=== PATIENT | female | born 1940 | race Caucasian/White ===

== ENCOUNTER 2017-11-18 14:57 | Inpatient (IN) | payer MEDICARE, MEDICAID ==
--- NOTE | 2017-11-18 15:25 | ER Document Report ---
ED Medical Screen (RME) - General Chief Complaint: Nausea/Vomiting Stated Complaint: NAUSEA,VOMITING Time Seen by Provider: 11/18/17 15:20 Mode of Arrival: Ambulatory Information source: Patient Notes: 77 yo arthritis, CAD, COPD,right heart blockage (dx stress test 2 months ago), andgina, chs, PVD, kidney disease female in by EMS with CC "I thought I had a heart attack", EMT told her that she would probably be admitted until Thursday so she came with suitcase. On Thursday had nausea, burning up, back pain between the shoulder blades and radiated to front of chest, projectile vomiting all medicines. Vomiting started before the chest ache and pressure. [place] restless and hot, not able to ate, looking at food made her nauseous. [place] a little better yesterday but then the shoulder blade ache and chest pain/stomach ache started again. Ate rice krispies today and was able to keep it down. Diarrhea thursday and thursday PM. At this time as ache between shoulder blades "hard to explain" TRAVEL OUTSIDE OF THE [place] IN LAST 30 DAYS: No - Related Data Allergies/Adverse Reactions: codeine [Codeine] Allergy (Verified 11/18/17 15:00) itchy strawberry Allergy (Verified 11/18/17 15:03) varenicline [From Chantix] Allergy (Verified 11/18/17 15:03) Past Medical History - Past Medical History Cardiac Medical History: Reports: Hx Coronary Artery Disease, Hx Heart Attack, Hx Hypertension Denies: Hx Atrial Fibrillation, Hx Congestive Heart Failure, Hx Hypercholesterolemia, Hx Peripheral Vascular Disease, Hx Pulmonary Embolism, Hx Heart Murmur Pulmonary Medical History: Reports: Hx Bronchitis, Hx COPD, Hx Pneumonia, Hx Sleep Apnea Denies: Hx Asthma, Hx Respiratory Failure, Hx Tuberculosis Endocrine Medical History: Reports: Hx Hypothyroidism. Denies: Hx Graves' Disease, Hx Hyperthyroidism Renal/ Medical History: Denies: Hx End Stage Renal Disease, Hx Kidney Stones, Hx Ovarian Cysts, Hx Peritoneal Dialysis, Hx Pelvic Inflammatory Disease Malignancy Medical History: Reports: Hx Breast Cancer - Lumpectomy 1993 R side and removed 9 lymph nodes. Denies: Hx Cervical Cancer, Hx Leukemia, Hx Lung Cancer, Hx Ovarian Cancer GI Medical History: Reports: Hx Gastroesophageal Reflux Disease, Hx Ulcer - Duodenal. Denies: Hx Crohn's Disease, Hx Hiatal Hernia, Hx Irritable Bowel, Hx Liver Failure, Hx Pancreatitis Musculoskeltal Medical History: Reports Hx Arthritis, Denies Hx Fibromyalgia, Denies Hx Muscular Dystrophy Psychiatric Medical History: Reports: Hx Depression Denies: Hx Bipolar Disorder, Hx Post Traumatic Stress Disorder, Hx Schizophrenia Traumatic Medical History: Denies: Hx Fractures Infectious Medical History: Denies: Hx HIV Past Surgical History: Reports: Hx Appendectomy, Hx Breast Surgery - right lumpectomy, Hx Cardiac Catheterization, Hx Cardiac Surgery - bipass, Hx Section - x4, Hx Cholecystectomy, Hx Orthopedic Surgery - left knee, bilat thumb, Hx Tonsillectomy. Denies: Hx Colostomy, Hx Pacemaker - Immunizations Hx Diphtheria, Pertussis, Tetanus Vaccination: Yes Physical Exam - Vital signs Vitals: Temp Pulse Resp BP Pulse Ox 98.3 F 76 18 157/72 H 97 11/18/17 15:02 11/18/17 15:02 11/18/17 15:02 11/18/17 15:02 11/18/17 15:02 Course - Vital Signs Vital signs: Temp Pulse Resp BP Pulse Ox 98.3 F 76 18 157/72 H 97 11/18/17 15:02 11/18/17 15:02 11/18/17 15:02 11/18/17 15:02 11/18/17 15:02 Doctor's Discharge - Discharge Referrals: BAYRON MONROY PA [Primary Care Provider] - Follow up as needed
[2017-11-18] MEDS ORDERED: ASPIRIN 81 MG TABLET, CHEWABLE PO ONE ×2 (15:27→21:00)
[2017-11-18 16:11] LABS: ABSOLUTE BASOPHILS # (AUTO) 0.1 10^3/uL (0.0-0.2); ABSOLUTE EOSINOPHILS # (AUTO) 0.1 10^3/uL (0.0-0.6); ABSOLUTE LYMPHOCYTES (AUTO) 2.8 10^3/uL (0.5-4.7); ABSOLUTE MONOCYTES (AUTO) 0.8 10^3/uL (0.1-1.4); ABSOLUTE NEUT (AUTO) 5.4 10^3/uL (1.7-8.2); BASOPHILS % (AUTO) 0.8 % (0-2); EOSINOPHILS % (AUTO) 1.1 % (0-6); HEMATOCRIT 44.2 % (36.0-47.0); HEMOGLOBIN 15.1 g/dL (12.0-15.5); LYMPHOCYTES % (AUTO) 30.7 % (13-45); MEAN CORPUSCULAR HEMOGLOBIN 28.5 pg (27.0-33.4); MEAN CORPUSCULAR HGB CONC 34.1 g/dL (32.0-36.0); MEAN CORPUSCULAR VOLUME 84 fl (80-97); MONOCYTES % (AUTO) 8.7 % (3-13); PLATELET COUNT 241 10^3/uL (150-450); RED BLOOD COUNT 5.29 10^6/uL (3.72-5.28); RED CELL DISTRIBUTION WIDTH 14.8 % (11.5-14.0); SEGMENTED NEUTROPHILS % (AUTO) 58.7 % (42-78); TOTAL CELLS COUNTED % (AUTO) 100 %; WHITE BLOOD COUNT 9.2 10^3/uL (4.0-10.5)
[2017-11-18 16:26] LABS: ALANINE AMINOTRANSFERASE 25 U/L (9-52); ALBUMIN 3.6 g/dL (3.5-5.0); ALKALINE PHOSPHATASE 130 U/L (38-126); ANION GAP 8 (5-19); ASPARTATE AMINO TRANSFERASE 19 U/L (14-36); BILIRUBIN,DIRECT 0.3 mg/dL (0.0-0.4); BILIRUBIN,TOTAL 0.4 mg/dL (0.2-1.3); BLOOD UREA NITROGEN 14 mg/dL (7-20); CALCIUM 9.3 mg/dL (8.4-10.2); CARBON DIOXIDE 28 mmol/L (22-30); CHLORIDE 107 mmol/L (98-107); CREATINE KINASE 68 U/L (30-135); GLUCOSE 94 mg/dL (75-110); POTASSIUM 4.1 mmol/L (3.6-5.0); SODIUM 142.8 mmol/L (137-145); TOTAL PROTEIN 6.7 g/dL (6.3-8.2)
[2017-11-18 16:40] LABS: CREATINE KINASE MB 1.11 ng/mL (<4.55)
[2017-11-18 16:42] LABS: TROPONIN I 0.096 ng/mL
--- NOTE | 2017-11-18 17:28 | RADIOLOGY REPORT (SQ) ---
EXAM DESCRIPTION: CHEST SINGLE VIEW COMPLETED DATE/TIME: 11/18/2017 4:58 pm REASON FOR STUDY: back and chest pain COMPARISON: March 2012 EXAM PARAMETERS: NUMBER OF VIEWS: One view. TECHNIQUE: Single frontal radiographic view of the chest acquired. RADIATION DOSE: NA LIMITATIONS: None. FINDINGS: LUNGS AND PLEURA: There is some minimal blunting of the costophrenic angles left greater t [place] right which I cannot exclude as small pleural effusions. I cannot exclude some associated atelec tasis or infiltrate in the lung bases. MEDIASTINUM AND HILAR STRUCTURES: No masses. Contour normal. HEART AND VASCULAR STRUCTURES: Cardiac silhouette is enlarged. BONES: No acute findings. HARDWARE: None in the chest. OTHER: No other significant finding. IMPRESSION: Bibasilar densities as noted above TECHNICAL DOCUMENTATION: JOB ID: [id number] [employer]- All Rights Reserved Reading location - IP/workstation name: [email or web address]
--- NOTE | 2017-11-18 18:29 | EKG REPORT ---
SEVERITY:- ABNORMAL ECG - SINUS RHYTHM PROBABLE LEFT VENTRICULAR HYPERTROPHY : Confirmed by: Oliva Mohamud 18-Nov-2017 18:29:01
[2017-11-18] MEDS ORDERED: NORMAL SALINE 1000 ML 1,000 ML IV ONE (18:39)
[2017-11-18] MEDS ORDERED: ONDANSETRON HCL INJ/PF 4 MG/2 ML SDV IV ONE (18:40)
[2017-11-18] MEDS ORDERED: LIDOCAINE 2% VISCOUS SOLN 20 ML UDCUP PO ONE (19:52)
[2017-11-18] MEDS ORDERED: METOCLOPRAMIDE HCL ORAL SOLN 10 MG/10 ML UDCUP PO ONE (19:52)
[2017-11-18] MEDS ORDERED: FAMOTIDINE 20 MG TABLET PO ONE (19:52)
[2017-11-18] MEDS ORDERED: MAG HYDROX/AL HYDROX/SIMETH SUSP 30 ML UDCUP PO ONE (19:52)
--- NOTE | 2017-11-18 19:52 | ER Document Report ---
ED General - General Mode of Arrival: Ambulatory TRAVEL OUTSIDE OF THE [place] IN LAST 30 DAYS: No <JONI RODRIGUEZ - Last Filed: 11/18/17 20:59> <CHELSY MCLAIN - Last Filed: 11/19/17 11:39> - General Chief Complaint: Nausea/Vomiting Stated Complaint: NAUSEA,VOMITING Time Seen by Provider: 11/18/17 15:20 Notes: Patient is a 77-year-old female with a past medical history of coronary artery disease, hypertension, hyperlipidemia, who presents with 4 days of nausea, vomiting, and intermittent chest pain. She describes the pain as being a pressure in her chest radiating into her left jaw and intermittently into her back. States exertion worsens her pain. Nothing improves her pain. She has not seen her doctor regarding today's concerns. She cannot recall the last time she had a cardiac catheterization or stress test. She does currently notes some mild pressure currently but denies any radiation of the pain. She denies any associated shortness of breath. (JONI RODRIGUEZ) - Related Data Allergies/Adverse Reactions: codeine [Codeine] Allergy (Verified 11/18/17 15:00) itchy strawberry Allergy (Verified 11/18/17 15:03) varenicline [From Chantix] Allergy (Verified 11/18/17 15:03) Past Medical History - General Information source: Patient - Social History Smoking Status: Current Every Day Smoker Frequency of alcohol use: None Drug Abuse: None Lives with: Family Family History: Reviewed & Not Pertinent Patient has suicidal ideation: No Patient has homicidal ideation: No - Past Medical History Cardiac Medical History: Reports: Hx Coronary Artery Disease, Hx Heart Attack, Hx Hypertension Denies: Hx Atrial Fibrillation, Hx Congestive Heart Failure, Hx Hypercholesterolemia, Hx Peripheral Vascular Disease, Hx Pulmonary Embolism, Hx Heart Murmur Pulmonary Medical History: Reports: Hx Bronchitis, Hx COPD, Hx Pneumonia, Hx Sleep Apnea Denies: Hx Asthma, Hx Respiratory Failure, Hx Tuberculosis Endocrine Medical History: Reports: Hx Hypothyroidism. Denies: Hx Graves' Disease, Hx Hyperthyroidism Renal/ Medical History: Denies: Hx End Stage Renal Disease, Hx Kidney Stones, Hx Ovarian Cysts, Hx Peritoneal Dialysis, Hx Pelvic Inflammatory Disease Malignancy Medical History: Reports: Hx Breast Cancer - Lumpectomy 1993 R side and removed 9 lymph nodes. Denies: Hx Cervical Cancer, Hx Leukemia, Hx Lung Cancer, Hx Ovarian Cancer GI Medical History: Reports: Hx Gastroesophageal Reflux Disease, Hx Ulcer - Duodenal. Denies: Hx Crohn's Disease, Hx Hiatal Hernia, Hx Irritable Bowel, Hx Liver Failure, Hx Pancreatitis Musculoskeletal Medical History: Reports Hx Arthritis, Denies Hx Fibromyalgia, Denies Hx Muscular Dystrophy Psychiatric Medical History: Reports: Hx Depression Denies: Hx Bipolar Disorder, Hx Post Traumatic Stress Disorder, Hx Schizophrenia Traumatic Medical History: Denies: Hx Fractures Infectious Medical History: Denies: Hx HIV Past Surgical History: Reports: Hx Appendectomy, Hx Breast Surgery - right lumpectomy, Hx Cardiac Catheterization, Hx Cardiac Surgery - bipass, Hx Section - x4, Hx Cholecystectomy, Hx Orthopedic Surgery - left knee, bilat thumb, Hx Tonsillectomy. Denies: Hx Colostomy, Hx Pacemaker - Immunizations Hx Diphtheria, Pertussis, Tetanus Vaccination: Yes Hx Pneumococcal Vaccination: 03/09/10 <JONI RODRIGUEZ - Last Filed: 11/18/17 20:59> Review of Systems <JONI RODRIGUEZ - Last Filed: 11/18/17 20:59> <CHELSY MCLAIN - Last Filed: 11/19/17 11:39> - Review of Systems Notes: Constitutional: Negative for fever. HENT: Negative for sore throat. Eyes: Negative for visual changes. Cardiovascular: Positive for chest pain. Respiratory: Negative for shortness of breath. Gastrointestinal: Negative for abdominal pain, positive vomiting Genitourinary: Negative for dysuria. Musculoskeletal: Negative for back pain. Skin: Negative for rash. Neurological: Negative for headaches, weakness or numbness. 10 point ROS negative except as marked above and in HPI. (JONI RODRIGUEZ) Physical Exam - Vital signs Interpretation: Hypertensive <JONI RDORIGUEZ - Last Filed: 11/18/17 20:59> <CHELSY MCLAIN - Last Filed: 11/19/17 11:39> - Vital signs Vitals: Temp Pulse Resp BP Pulse Ox 98.3 F 76 18 157/72 H 97 11/18/17 15:02 11/18/17 15:02 11/18/17 15:02 11/18/17 15:02 11/18/17 15:02 Notes: PHYSICAL EXAMINATION: GENERAL: Well-appearing, well-nourished and in no acute distress. HEAD: Atraumatic, normocephalic. EYES: Pupils equal round and reactive to light, extraocular movements intact, sclera anicteric, conjunctiva are normal. ENT: nares patent, oropharynx clear without exudates. Moist mucous membranes. NECK: Normal range of motion, supple without lymphadenopathy LUNGS: Breath sounds clear to auscultation bilaterally and equal. No wheezes rales or rhonchi. HEART: Regular rate and rhythm without murmurs ABDOMEN: Soft, nontender, normoactive bowel sounds. No guarding, no rebound. No masses appreciated. EXTREMITIES: Normal range of motion, no pitting or edema. No cyanosis. NEUROLOGICAL: No focal neurological deficits. Moves all extremities spontaneously and on command. PSYCH: Normal mood, normal affect. SKIN: Warm, Dry, normal turgor, no rashes or lesions noted. (JONI RODRIGUEZ) Course - Laboratory Result Diagrams: 11/18/17 16:01 11/18/17 16:01 - Diagnostic Test Radiology reviewed: Image reviewed, Reports reviewed <JONI RODRIGUEZ - Last Filed: 11/18/17 20:59> - Laboratory Result Diagrams: 11/18/17 16:01 11/18/17 16:01 <CHELSY MCLAIN - Last Filed: 11/19/17 11:39> - Re-evaluation Re-evalutation: 11/18/17 19:51 Patient presents with 4 days of intermittent chest pain, nausea, vomiting, upper abdominal pain. She is found to have a moderately elevated troponin 0.093 in the indeterminate range although of note during her previous hospitalization her levels were the same at that time. Her EKG is without ischemic changes. On abdominal exam she has no focal abdominal tenderness, rebound or guarding. Will repeat troponin to determine if this is continuing to elevate. Will also proceed with IV fluids, IV Zofran. The patient is asking for something to eat, certainly reassuring in the setting of having complaint of abdominal pain and vomiting. She does not have a gallbladder. Conical history and exam are not consistent with an acute appendicitis, biliary pathology, bowel obstruction or bowel perforation. 11/18/17 20:59 Patient's troponin has unfortunately continued to elevate. She does also continue to have some chest pain. This is concerning for an NSTEMI. Patient has been given a dose of Lovenox and a nitroglycerin patch has been applied. Unfortunately we are currently in a disastrous scenario all transfers must be coordinated through the [facility]. We have initiated this process for this patient. (JONI RODRIGUEZ) 11/19/17 11:38 Patient was consulted for medicine consult due to the fact that anticipated boarding for prolonged period of time. Medicine is evaluated patient. Deanna Schneider with internal medicine as visit with patient. Patient now states that she refuses to be transferred and does not want a cardiac catheterization even if she needs it. At this time we have made a decision to admit her to the hospitalist service. (CHELSY MCLAIN) - Vital Signs Vital signs: Temp Pulse Resp BP Pulse Ox 98.3 F 76 17 158/64 H 93 11/18/17 15:02 11/18/17 15:02 11/19/17 09:00 11/19/17 07:01 11/19/17 09:00 - Laboratory Laboratory results interpreted by me: 11/18/17 11/18/17 11/18/17 16:01 16:01 20:30 RBC 5.29 H RDW 14.8 H Creatinine 1.31 H Est GFR ( Amer) 48 L Est GFR (Non-Af Amer) 39 L Alkaline Phosphatase 130 H Urine Protein 100 H Urine Urobilinogen 2.0 H - Diagnostic Test Radiology results interpreted by me: 11/18/17 21:01 Chest x-ray: No acute infiltrate or pneumothorax. Bibasilar atelectasis present (JONI RODRIGUEZ) - EKG Interpretation by Me Additional EKG results interpreted by me: 11/18/17 21:05 Normal sinus rhythm. Rate 69. No ST elevations or depressions. QTC is 463. ( JONI RODRIGUEZ) Discharge <JONI RODRIGUEZ - Last Filed: 11/18/17 20:59> - Discharge Admitting Provider: Hospitalist - [facility] Admitted: Telemetry <CHELSY MCLAIN - Last Filed: 11/19/17 11:39> - Discharge Clinical Impression: NSTEMI (non-ST elevated myocardial infarction) Condition: Good Disposition: ADMITTED INPATIENT Referrals: BAYRON MONROY PA [Primary Care Provider] - Follow up as needed
[2017-11-18 20:18] LABS: LIPASE 63.9 U/L (23-300)
[2017-11-18 20:54] LABS: APPEARANCE,URINE SLIGHTLY-CLOUDY; BILIRUBIN,URINE NEGATIVE (NEGATIVE); COLOR,URINE YELLOW; GLUCOSE, URINE NEGATIVE (NEGATIVE); KETONES,URINE NEGATIVE (NEGATIVE); LEUKOCYTE ESTERASE,URINE NEGATIVE (NEGATIVE); NITRITE,URINE NEGATIVE (NEGATIVE); PROTEIN,URINE 100 mg/dL (NEGATIVE); URINE SPECIFIC GRAVITY 1.023
[2017-11-18] MEDS ORDERED: METOPROLOL TARTRATE 25 MG TABLET PO ONE (20:55)
[2017-11-18] MEDS ORDERED: AMLODIPINE BESYLATE 10 MG TABLET PO ONE (20:55)
[2017-11-18] MEDS ORDERED: ISOSORBIDE MONONITRATE 60 MG TAB.ER.24H PO ONE (20:55)
[2017-11-18] MEDS ORDERED: NITROGLYCERIN 2% OINTMENT 1 GM PACKET TP ONE (20:57)
[2017-11-18] MEDS: ENOXAPARIN SODIUM INJ 100 MG/1 ML DISP.SYRIN SUBCUT SCH (21:20)
[2017-11-18] MEDS ORDERED: ALPRAZOLAM 0.5 MG TABLET PO ONE (23:11)
[2017-11-19] MEDS ORDERED: ATORVASTATIN CALCIUM 80 MG TABLET PO ONE (00:38)
[2017-11-19] MEDS: ENOXAPARIN SODIUM INJ 100 MG/1 ML DISP.SYRIN SUBCUT SCH ×2 (09:52→22:02)
[2017-11-19] MEDS ORDERED: ALPRAZOLAM 0.5 MG TABLET PO PRN (10:45)
[2017-11-19] MEDS ORDERED: CLOPIDOGREL BISULFATE 75 MG TABLET PO ONE (11:00)
[2017-11-19] MEDS ORDERED: LEVOTHYROXINE SODIUM 0.1 MG TABLET PO ONE (11:00)
[2017-11-19] MEDS ORDERED: LIDOCAINE 5% (700 MG) TRANSDERMAL ADH..PATCH TP ONE (11:00)
[2017-11-19] MEDS: LIDOCAINE 5% (700 MG) TRANSDERMAL ADH..PATCH TP SCH (11:28)
[2017-11-19] MEDS ORDERED: NORMAL SALINE 1000 ML 1,000 ML IV PRN (11:44)
[2017-11-19] MEDS ORDERED: MAG HYDROX/AL HYDROX/SIMETH SUSP 30 ML UDCUP PO PRN (11:55)
[2017-11-19] MEDS ORDERED: IPRATROPIUM/ALBUTEROL 0.5-2.5 MG/3 ML AMPUL NEB PRN (11:57)
[2017-11-19 12:16] LABS: ANION GAP 9 (5-19); BLOOD UREA NITROGEN 11 mg/dL (7-20); CALCIUM 9.1 mg/dL (8.4-10.2); CARBON DIOXIDE 26 mmol/L (22-30); CHLORIDE 107 mmol/L (98-107); GLUCOSE 108 mg/dL (75-110); POTASSIUM 4.5 mmol/L (3.6-5.0); SODIUM 142.1 mmol/L (137-145)
--- NOTE | 2017-11-19 12:34 | RADIOLOGY REPORT (SQ) ---
EXAM DESCRIPTION: CT ABD/PELVIS WITH IV ONLY COMPLETED DATE/TIME: 11/19/2017 12:13 pm REASON FOR STUDY: abdominal pain, wt loss, remote Hx CA COMPARISON: Chest film 11/18/2017 Abdominal films 06/08/2012 TECHNIQUE: CT scan of the abdomen and pelvis performed using helical scanning technique with dynamic intravenous contrast injection. No oral contrast. Images reviewed with lung, soft tissue, and bone windows. Reconstructed coronal and sagittal MPR images reviewed. Delayed images for evaluation of the urinary system also acquired. All images stored on PACS. All CT scanners at this facility use dose modulation, iterative reconstruction, and/or weight based d osing when appropriate to reduce radiation dose to as low as reasonably achievable (ALARA). [facility]: Dose Right [facility]: CareDose [facility]: Dose Right [facility]: Teradose 4D [facility]: ViaWest CONTRAST TYPE AND DOSE: contrast/concentration: Isovue 350.00 mg/ml; Total Contrast Delivered: 99.0 ml; Total Saline Delivered: 72.0 ml RENAL FUNCTION: Creatinine 1.3 RADIATION DOSE: CT Rad equipment meets quality standard of care and radiation dose reduction techniq ues were employed. CTDIvol: 20.7 - 21.0 mGy. DLP: 2018 mGy-cm.. LIMITATIONS: None. FINDINGS: LOWER CHEST: No significant findings. No nodules or infiltrates. LIVER: Normal size. No masses. No dilated ducts. SPLEEN: Normal size. No focal lesions. PANCREAS: No masses. No significant calcifications. No adjacent inflammation or peripancreatic fluid collections. Pancreatic duct not dilated. GALLBLADDER: Surgically absent ADRENAL GLANDS: No significant masses or asymmetry. RIGHT KIDNEY AND URETER: Normal size right kidney. No solid masses. No significant calcifications. No hydronephrosis or hydroureter. LEFT KIDNEY AND URETER: Diffuse left renal cortical atrophy with 1 cm midpole and lower pole cysts. No solid masses. No significant calcifications. No hydronephrosis or hydroureter. AORTA AND VESSELS: No aneurysm. No dissection. Renal arteries, SMA, celiac without stenosis. RETROPERITONEUM: No retroperitoneal adenopathy, hemorrhage or masses. BOWEL AND PERITONEAL CAVITY: No CT evidence of bowel obstruction or free intraperitoneal air or fluid . Large amount of stool throughout the colon. Sigmoid colon diverticuli are present. No masses or inflammatory changes. No free fluid or peritoneal masses. APPENDIX: Normal. PELVIS: No mass. No free fluid. Normal bladder. Normal size female pelvic organs ABDOMINAL WALL: No masses. No hernias. BONES: Degenerative changes lower lumbar spine OTHER: No other significant finding. IMPRESSION: NO SIGNIFICANT OR ACUTE FINDING IN THE ABDOMEN OR PELVIS ON CT SCAN WITH IV CONTRAST. TECHNICAL DOCUMENTATION: JOB ID: [id number] Quality ID # [id number]: Final reports with documentation of one or more dose reduction techniques (e.g., Au tomated exposure control, adjustment of the mA and/or kV according to patient size, use of iterative reconstruction technique) 2010 [employer]- All Rights Reserved Reading location - IP/workstation name: [email or web address]
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
[2017-11-19] MEDS ORDERED: NA PHOS,M-B/NA PHOS,DI-BA (ADULT) 133 ML ENEMA PR ONE (14:30)
[2017-11-19] MEDS ORDERED: FUROSEMIDE 20 MG TABLET PO ONE (15:00)
[2017-11-19] MEDS ORDERED: ISOSORBIDE MONONITRATE 60 MG TAB.ER.24H PO ONE (15:00)
[2017-11-19] MEDS ORDERED: METOPROLOL TARTRATE 25 MG TABLET PO ONE (15:00)
[2017-11-19] MEDS: HYDRALAZINE HCL 50 MG TABLET PO SCH ×2 (15:00→21:58)
[2017-11-19] MEDS: GABAPENTIN 300 MG CAPSULE PO SCH ×2 (15:00→22:01)
[2017-11-19] MEDS ORDERED: AMLODIPINE BESYLATE 10 MG TABLET PO ONE (15:00)
[2017-11-19] MEDS: PENTOXIFYLLINE 400 MG TABLET.SA PO SCH ×2 (15:05→22:10)
--- NOTE | 2017-11-19 16:59 | EKG REPORT ---
SEVERITY:- ABNORMAL ECG - SINUS RHYTHM PROBABLE LEFT VENTRICULAR HYPERTROPHY : Confirmed by: Oliva Mohamud 19-Nov-2017 16:58:00
[2017-11-19] MEDS ORDERED: HYDRALAZINE HCL INJ/PF 20 MG/1 ML SDV IV PRN (17:00)
[2017-11-19] MEDS: DOCUSATE SODIUM 100 MG CAPSULE PO SCH (17:21)
[2017-11-19] MEDS: MORPHINE SULFATE 10 MG/ML INJ IV PRN ×2 (17:21→23:46)
[2017-11-19] MEDS: TICAGRELOR 90 MG TABLET PO SCH (17:21)
[2017-11-19] MEDS: ATORVASTATIN CALCIUM 40 MG TABLET PO SCH (21:57)
[2017-11-19] MEDS: OXYCODONE HCL IR 5 MG TABLET PO PRN (21:58)
[2017-11-19] MEDS ORDERED: ISOSORBIDE MONONITRATE 60 MG TAB.ER.24H PO SCH (22:00)
[2017-11-19] MEDS ORDERED: POLYETHYLENE GLYCOL 3350 POWDER 17 GM/1 PACKET PO SCH (22:00)
[2017-11-19] MEDS: METOPROLOL TARTRATE 25 MG TABLET PO SCH (22:02)
[2017-11-20 05:16] LABS: HEMATOCRIT 40.6 % (36.0-47.0); HEMOGLOBIN 13.6 g/dL (12.0-15.5); MEAN CORPUSCULAR HGB CONC 33.5 g/dL (32.0-36.0); MEAN CORPUSCULAR VOLUME 84 fl (80-97); PLATELET COUNT 207 10^3/uL (150-450); RED BLOOD COUNT 4.86 10^6/uL (3.72-5.28); WHITE BLOOD COUNT 7.8 10^3/uL (4.0-10.5)
[2017-11-20] MEDS: GABAPENTIN 300 MG CAPSULE PO SCH ×3 (05:33→22:09)
[2017-11-20] MEDS: LANSOPRAZOLE 30 MG TAB.RAP.DR PO SCH (05:33)
[2017-11-20] MEDS: PENTOXIFYLLINE 400 MG TABLET.SA PO SCH ×3 (05:33→22:08)
[2017-11-20] MEDS: MORPHINE SULFATE 10 MG/ML INJ IV PRN ×2 (05:34→11:38)
[2017-11-20] MEDS: HYDRALAZINE HCL 50 MG TABLET PO SCH ×3 (05:34→22:09)
[2017-11-20 05:35] LABS: ANION GAP 7 (5-19); BLOOD UREA NITROGEN 15 mg/dL (7-20); CALCIUM 8.7 mg/dL (8.4-10.2); CARBON DIOXIDE 29 mmol/L (22-30); CHLORIDE 104 mmol/L (98-107); CHOLESTEROL 127.51 mg/dL (0-200); GLUCOSE 103 mg/dL (75-110); POTASSIUM 3.6 mmol/L (3.6-5.0); SODIUM 139.6 mmol/L (137-145); TRIGLYCERIDES 193 mg/dL (<150)
[2017-11-20 05:46] LABS: DIRECT LDL 60 mg/dL (<100)
[2017-11-20 05:51] LABS: VLDL CHOLESTEROL 38.6 mg/dL (10-31)
[2017-11-20] MEDS: LEVOTHYROXINE SODIUM 0.1 MG TABLET PO SCH (06:48)
[2017-11-20] MEDS ORDERED: NORMAL SALINE 1000 ML 1,000 ML IV PRN (07:43)
[2017-11-20] MEDS ORDERED: FUROSEMIDE 20 MG TABLET PO SCH (08:00)
[2017-11-20] MEDS ORDERED: (PENDING PHARMACY ID) (Liothyronine Sodium [Cytomel] 5 MCG) PO SCH (10:00)
[2017-11-20] MEDS ORDERED: (PENDING PHARMACY ID) (Naloxegol Oxalate 25 MG) PO SCH (10:00)
[2017-11-20] MEDS ORDERED: (PENDING PHARMACY ID) (Vortioxetine Hydrobromide [Trintellix] 5 MG) PO SCH (10:00)
[2017-11-20] MEDS ORDERED: CLOPIDOGREL BISULFATE 75 MG TABLET PO SCH (10:00)
[2017-11-20] MEDS ORDERED: ISOSORBIDE MONONITRATE 60 MG TAB.ER.24H PO SCH (10:00)
[2017-11-20] MEDS ORDERED: LIDOCAINE 5% (700 MG) TRANSDERMAL ADH..PATCH TP SCH (10:00)
[2017-11-20] MEDS ORDERED: POLYETHYLENE GLYCOL 3350 POWDER 17 GM/1 PACKET PO SCH (10:00)
[2017-11-20] MEDS ORDERED: ISOSORBIDE MONONITRATE 30 MG TAB.ER.24H PO ONE ×2 (10:17→10:30)
[2017-11-20] MEDS ORDERED: ISOSORBIDE MONONITRATE 60 MG TAB.ER.24H PO ONE ×2 (10:17→10:19)
[2017-11-20] MEDS: ISOSORBIDE MONONITRATE 60 MG TAB.ER.24H PO SCH (10:33)
[2017-11-20] MEDS: ENOXAPARIN SODIUM INJ 100 MG/1 ML DISP.SYRIN SUBCUT SCH ×2 (10:33→22:10)
[2017-11-20] MEDS: DOCUSATE SODIUM 100 MG CAPSULE PO SCH ×2 (10:34→17:18)
[2017-11-20] MEDS: TICAGRELOR 90 MG TABLET PO SCH ×2 (10:34→17:18)
[2017-11-20] MEDS: ASPIRIN 81 MG TABLET, CHEWABLE PO SCH (10:34)
[2017-11-20] MEDS: LIDOCAINE 5% (700 MG) TRANSDERMAL ADH..PATCH TP SCH (10:34)
[2017-11-20] MEDS: AMLODIPINE BESYLATE 10 MG TABLET PO SCH (10:34)
[2017-11-20] MEDS: POTASSIUM CHLORIDE 10 MEQ CAPSULE.ER PO SCH (10:34)
[2017-11-20] MEDS: LIOTHYRONINE SODIUM 5 MCG TABLET PO SCH (10:34)
[2017-11-20] MEDS: METOPROLOL TARTRATE 25 MG TABLET PO SCH ×2 (10:37→22:09)
[2017-11-20] MEDS ORDERED: ISOSORBIDE MONONITRATE 30 MG TAB.ER.24H PO SCH (11:00)
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
--- NOTE | 2017-11-20 11:48 | RADIOLOGY REPORT (SQ) ---
EXAM DESCRIPTION: HIP LEFT AP/LATERAL COMPLETED DATE/TIME: 11/20/2017 11:36 am REASON FOR STUDY: pain hurts all over. COMPARISON: None. NUMBER OF VIEWS: Two views. TECHNIQUE: AP pelvis and additional frog-leg view of the left hip. LIMITATIONS: None. FINDINGS: MINERALIZATION: Osteopenia. LEFT HIP: No fracture or dislocation. No worrisome bone lesions. RIGHT HIP: No fracture or dislocation. No worrisome bone lesions. PUBIS AND ISCHIUM: No fracture. PELVIS: No fracture. SACRUM: No fracture or dislocation. No worrisome bone lesions. LOWER LUMBAR SPINE: No fracture or dislocation. No worrisome bone lesions. No significant disc disea se. SOFT TISSUES: No findings. OTHER: Vascular graft. IMPRESSION: NEGATIVE STUDY OF THE LEFT HIP AND PELVIS. NO RADIOGRAPHIC EVIDENCE OF ACUTE INJURY. TECHNICAL DOCUMENTATION: JOB ID: [id number] [employer]- All Rights Reserved Reading location - IP/workstation name: [email or web address]
--- NOTE | 2017-11-20 12:23 | PDOC PROGRESS REPORT ---
Subjective Progress Note for:: 11/20/17 Subjective:: PEBBLES ENAMORADO is a 77 year old female with a past medical history of HI 2 (s/ p angioplasty), CAD, PVD, CHF, hypertension, hyperlipidemia, COPD, CKD 2, remote breast cancer, obesity, chronic pain, opiate dependent who was admitted for non-STEMI. The patient is seen on morning rounds. She is found resting in bed comfortably on room air. Initially she is sleeping lying left lateral position; breathing is noted to be even and unlabored. Patient woke easily when I set her name. She tells me that she has not had any further episodes of chest, back, or left shoulder pain. She does endorse left knee pain; reports that during a transfer from stretcher to bed last night she felt a pop and that her knee has been aching since. She is noted to have left lower extremity edema of the calf which the patient reports is chronic for her following orthopedic surgery. She also complains of constipation, but did have a hard stool palpable movement last night. Otherwise, she states that she is feeling well and appreciates the care she is received in the hospital thus far. She has no other questions or concerns at this time. No concerns per nursing. Reason For Visit: NON-ST ELEVATION (NSTEMI) MYOCARDIAL INFARCTION Physical Exam Vital Signs: Temp Pulse Resp BP Pulse Ox 98.5 F 57 L 16 146/62 H 100 11/20/17 08:08 11/20/17 09:17 11/20/17 09:17 11/20/17 08:08 11/20/17 09:17 Intake & Output 11/19/17 11/20/17 11/21/17 06:59 06:59 06:59 Intake Total 0 Balance 0 Weight 98.4 kg General appearance: PRESENT: no acute distress, well-developed, well-nourished Head exam: PRESENT: atraumatic, normocephalic Eye exam: PRESENT: conjunctiva pink, EOMI, PERRLA. ABSENT: scleral icterus Ear exam: PRESENT: normal external ear exam Mouth exam: PRESENT: moist, tongue midline Neck exam: ABSENT: carotid bruit, JVD, lymphadenopathy, thyromegaly Respiratory exam: PRESENT: clear to auscultation evita, symmetrical, unlabored. ABSENT: rales, rhonchi, wheezes Cardiovascular exam: PRESENT: bradycardia - 50s-60s, RRR, +S1, +S2, systolic murmur. ABSENT: diastolic murmur, rubs Pulses: PRESENT: normal dorsalis pedis pul Vascular exam: PRESENT: normal capillary refill GI/Abdominal exam: PRESENT: distended, normal bowel sounds, soft, tenderness - Generalized. ABSENT: guarding, mass, organolmegaly, rebound Rectal exam: PRESENT: deferred Extremities exam: PRESENT: full ROM. ABSENT: calf tenderness, clubbing, pedal edema Neurological exam: PRESENT: alert, awake, oriented to person, oriented to place , oriented to time, oriented to situation, CN II-XII grossly intact. ABSENT: motor sensory deficit Psychiatric exam: PRESENT: appropriate affect, normal mood. ABSENT: homicidal ideation, suicidal ideation Skin exam: PRESENT: dry, intact, warm. ABSENT: cyanosis, rash Results Laboratory Results: 11/20/17 04:22 11/20/17 04:22 11/20/17 11/20/17 04:22 04:22 WBC 7.8 RBC 4.86 Hgb 13.6 Hct 40.6 MCV 84 MCH 28.0 MCHC 33.5 RDW 15.0 H Plt Count 207 Sodium 139.6 Potassium 3.6 Chloride 104 Carbon Dioxide 29 Anion Gap 7 BUN 15 Creatinine 1.40 H Est GFR ( Amer) 44 L Est GFR (Non-Af Amer) 37 L Glucose 103 Calcium 8.7 Triglycerides 193 H Cholesterol 127.51 LDL Cholesterol Direct 60 VLDL Cholesterol 38.6 H HDL Cholesterol 34 L Impressions: Chest X-Ray 11/18/17 15:27 IMPRESSION: Bibasilar densities as noted above Abdomen/Pelvis CT 11/19/17 00:00 IMPRESSION: NO SIGNIFICANT OR ACUTE FINDING IN THE ABDOMEN OR PELVIS ON CT SCAN WITH IV CONTRAST. Hip X-Ray 11/20/17 00:00 IMPRESSION: NEGATIVE STUDY OF THE LEFT HIP AND PELVIS. NO RADIOGRAPHIC EVIDENCE OF ACUTE INJURY. Knee X-Ray 11/20/17 00:00 IMPRESSION: No acute fracture. Osteoarthritis. Assessment & Plan - Diagnosis (1) NSTEMI (non-ST elevated myocardial infarction) Is this a current diagnosis for this admission?: Yes Plan: The patient presented with atypical chest pain that has gradually worsened over the last 3 days with multiple risk factors including obesity, hypertension, hyperlipidemia, CAD, CHF, and previous HI 2. EKG demonstrated sinus rhythm with probable LVH; ST segment is without elevation or depression, no acute findings. Chest x-ray is benign; there is bibasilar density, radiologist unable to comment on atelectasis versus pneumonia. The patient is afebrile with a normal white count and no symptoms suggestive of pneumonia at this time. Initial troponin was elevated at 0.096 and trended upward to a peak of 0.156, trended down to 0.104 and no longer following. Echocardiogram has been obtained; final read is pending. Initial report by [facility] suggest her LVEF is normal. The patient is admitted to the medical floor on continuous cardiac telemetry. She is placed on full dose Lovenox therapy. We will continue daily aspirin therapy. Continue her home dose atorvastatin. Her Plavix was discontinued. Have started Brilinta 90 mg twice daily as recommended by Dr. West. We will continue PPI for prophylaxis. Imdur dose has been adjusted to extended release 150 mg daily. Norvasc and metoprolol are continued. IV morphine as needed for breakthrough pain. Cardiology has been consulted; appreciate Dr. West's assistance. (2) HTN (hypertension) Qualifiers: Hypertension type: unspecified Qualified Code(s): I10 - Essential (primary ) hypertension Is this a current diagnosis for this admission?: Yes Plan: The patient's home medications of isosorbide, metoprolol, amlodipine, hydralazine, and furosemide are continued. (3) HLD (hyperlipidemia) Is this a current diagnosis for this admission?: Yes Plan: We will continue the patient's home dose atorvastatin. (4) CAD (coronary artery disease) Qualifiers: Coronary Disease-Associated Artery/Lesion type: unspecified vessel or lesion type Is this a current diagnosis for this admission?: Yes Plan: Plan as above. (5) CHF (congestive heart failure) Qualifiers: Heart failure type: unspecified Heart failure chronicity: chronic Qualified Code(s): I50.9 - Heart failure, unspecified Is this a current diagnosis for this admission?: Yes Plan: The patient reports a history of CHF; no evidence of acute exacerbation. She does not recall when her last echocardiogram was or what the findings were. We will continue her home dose medications as above. We will update echocardiogram; report is pending. Daily weights. Cardiac diet. (6) COPD (chronic obstructive pulmonary disease) Qualifiers: COPD type: unspecified COPD Qualified Code(s): J44.9 - Chronic obstructive pulmonary disease, unspecified Is this a current diagnosis for this admission?: Yes Plan: Patient endorses a history of COPD; without exacerbation at this time. Will provide supplemental oxygen and nebulizer treatments as needed. (7) GERD (gastroesophageal reflux disease) Is this a current diagnosis for this admission?: Yes Plan: Continue PPI. (8) Anxiety Is this a current diagnosis for this admission?: Yes Plan: Continue home medications; trintellix and xanax. (9) Opiate dependence, continuous Is this a current diagnosis for this admission?: Yes Plan: Will continue her home dose oxycodone for chronic pain. (10) Knee pain, left Qualifiers: Chronicity: acute Qualified Code(s): M25.562 - Pain in left knee Is this a current diagnosis for this admission?: Yes Plan: Patient reports left knee pain; reports that she felt a pop yesterday when transferring from stretcher to bed. She is noted to have slight edema to her left calf which patient reports is chronic following previous orthopedic procedure. She does have full range of motion. Left hip and knee imaging are benign; chronic degenerative changes noted to the knee. Encourage use of Tylenol, ice, position changes. Continue the patient's home chronic pain medication regiment. - Time Time Spent with patient: 15-24 minutes Medications reviewed and adjusted accordingly: Yes Anticipated discharge: Home Within: within 72 hours - Inpatient Certification Based on my medical assessment, after consideration of the patient's comorbidities, presenting symptoms, or acuity I expect that the services needed warrant INPATIENT care.: Yes I certify that my determination is in accordance with my understanding of Medicare's requirements for reasonable and necessary INPATIENT services [42 CFR 412.3e].: Yes Medical Necessity: Need For Continuous Telemetry Monitoring
--- NOTE | 2017-11-20 14:23 | EKG REPORT ---
SEVERITY:- ABNORMAL ECG - SINUS RHYTHM PROBABLE LEFT VENTRICULAR HYPERTROPHY : Confirmed by: Oliva Mohamud 20-Nov-2017 14:22:30
[2017-11-20] MEDS: OXYCODONE HCL IR 5 MG TABLET PO PRN (15:57)
[2017-11-20 19:58] LABS: APPEARANCE,URINE CLEAR; BILIRUBIN,URINE NEGATIVE (NEGATIVE); COLOR,URINE YELLOW; GLUCOSE, URINE NEGATIVE (NEGATIVE); KETONES,URINE NEGATIVE (NEGATIVE); LEUKOCYTE ESTERASE,URINE NEGATIVE (NEGATIVE); NITRITE,URINE NEGATIVE (NEGATIVE); PROTEIN,URINE NEGATIVE (NEGATIVE); URINE SPECIFIC GRAVITY 1.019; UROBILINOGEN,URINE NEGATIVE mg/dL (<2.0)
[2017-11-20] MEDS: ALPRAZOLAM 0.5 MG TABLET PO PRN (22:08)
[2017-11-20] MEDS: ATORVASTATIN CALCIUM 40 MG TABLET PO SCH (22:08)
[2017-11-20] MEDS: POLYETHYLENE GLYCOL 3350 POWDER 17 GM/1 PACKET PO SCH (22:10)
[2017-11-21] MEDS: OXYCODONE HCL IR 5 MG TABLET PO PRN ×2 (01:12→21:46)
[2017-11-21 05:12] LABS: ANION GAP 5 (5-19); BLOOD UREA NITROGEN 13 mg/dL (7-20); CALCIUM 8.9 mg/dL (8.4-10.2); CARBON DIOXIDE 28 mmol/L (22-30); CHLORIDE 106 mmol/L (98-107); GLUCOSE 105 mg/dL (75-110); POTASSIUM 3.9 mmol/L (3.6-5.0); SODIUM 139.4 mmol/L (137-145)
[2017-11-21] MEDS: MORPHINE SULFATE 10 MG/ML INJ IV PRN (05:38)
[2017-11-21] MEDS: LEVOTHYROXINE SODIUM 0.1 MG TABLET PO SCH (05:41)
[2017-11-21] MEDS: LANSOPRAZOLE 30 MG TAB.RAP.DR PO SCH (05:41)
[2017-11-21] MEDS: HYDRALAZINE HCL 50 MG TABLET PO SCH ×3 (05:42→21:26)
[2017-11-21] MEDS: GABAPENTIN 300 MG CAPSULE PO SCH ×3 (05:43→21:22)
[2017-11-21] MEDS: PENTOXIFYLLINE 400 MG TABLET.SA PO SCH ×3 (05:45→21:22)
[2017-11-21] MEDS: DOCUSATE SODIUM 100 MG CAPSULE PO SCH ×2 (10:15→17:24)
[2017-11-21] MEDS: FUROSEMIDE 20 MG TABLET PO SCH ×2 (10:16→12:07)
[2017-11-21] MEDS: AMLODIPINE BESYLATE 10 MG TABLET PO SCH (10:16)
[2017-11-21] MEDS: ISOSORBIDE MONONITRATE 60 MG TAB.ER.24H PO SCH (10:16)
[2017-11-21] MEDS: TICAGRELOR 90 MG TABLET PO SCH ×2 (10:17→17:24)
[2017-11-21] MEDS: POTASSIUM CHLORIDE 10 MEQ CAPSULE.ER PO SCH (10:17)
[2017-11-21] MEDS: METOPROLOL TARTRATE 25 MG TABLET PO SCH ×2 (10:17→21:26)
[2017-11-21] MEDS: LIOTHYRONINE SODIUM 5 MCG TABLET PO SCH (10:17)
[2017-11-21] MEDS: ASPIRIN 81 MG TABLET, CHEWABLE PO SCH (10:17)
[2017-11-21] MEDS: ENOXAPARIN SODIUM INJ 100 MG/1 ML DISP.SYRIN SUBCUT SCH (10:17)
[2017-11-21] MEDS: LIDOCAINE 5% (700 MG) TRANSDERMAL ADH..PATCH TP SCH (10:18)
[2017-11-21 13:25] LABS: APPEARANCE,URINE CLOUDY; BILIRUBIN,URINE NEGATIVE (NEGATIVE); COLOR,URINE STRAW; GLUCOSE, URINE NEGATIVE (NEGATIVE); KETONES,URINE NEGATIVE (NEGATIVE)
[2017-11-21 13:26] LABS: LEUKOCYTE ESTERASE,URINE NEGATIVE (NEGATIVE); NITRITE,URINE NEGATIVE (NEGATIVE); PROTEIN,URINE 30 mg/dL (NEGATIVE); URINE SPECIFIC GRAVITY 1.015; UROBILINOGEN,URINE NEGATIVE mg/dL (<2.0)
[2017-11-21 15:39] LABS: ANION GAP 5 (5-19); BLOOD UREA NITROGEN 15 mg/dL (7-20); CALCIUM 8.5 mg/dL (8.4-10.2); CARBON DIOXIDE 30 mmol/L (22-30); CHLORIDE 104 mmol/L (98-107); CREATINE KINASE 83 U/L (30-135); GLUCOSE 111 mg/dL (75-110); POTASSIUM 4.2 mmol/L (3.6-5.0); SODIUM 138.5 mmol/L (137-145)
--- NOTE | 2017-11-21 15:48 | Progress Note ---
Provider Note Provider Note: PROGRESS NOTE by Dr. Micaela Garcia for 11/21/2017. OBJECTIVE. The patient since yesterday did not have any chest pain or discomfort. She is per the nurses started having some chest pain relieved with nitroglycerin. EKG obtained shows deeper T-wave inversion in the lateral leads. At present the patient is pain-free. She denies any shortness of breath palpitation PND orthopnea or leg edema. There is no wheezing or cough there is no symptoms of acute exacerbation of COPD. There is no pedal edema. There is no arrhythmias seen on the monitor. There is no TIA or CVA symptoms.. PHYSICAL EXAMINATION: The patient is moderately obese, but well-groomed at present no acute distress. She has no further chest pain. She is well-groomed. Selected Entries 11/21/17 15:11 Temperature 97.8 F Pulse Rate 55 L Respiratory 18 Rate Blood Pressure 150/49 H Blood Pressure 82 Mean O2 Sat by Pulse 99 Oximetry Oxygen Delivery Room Air Method HEAD: Head is atraumatic normocephalic. EYES: Pupils are equal round regular reactive to light accommodation. Extraocular movements are normal there is no conjunctival pallor there is no scleral icterus. ENT: Negative. NECK: Neck is supple there is no JVD carotids equal there is no bruit there is no lymphadenopathy. There is no goiter. Trachea central. There is no accessory muscles of respiration use. LUNGS: There is diminished air entry and prolonged expiration throughout the lungs without any rhonchi rales or wheezing. On percussion there is hyperresonance throughout. There is no chest wall tenderness. HEART: S1-S2 is heard S1 is of normal intensity there is no S3 gallop there is no S4 gallop the systolic murmur left sternal border and apex there is no rub. ABDOMEN: Soft obese nontender there is no hepatosplenomegaly bowel sounds well heard there is no rebound guarding or rigidity. EXTREMITIES: Femorals are diminished there is no femoral bruits neck pulses are diminished. There is no pedal edema there is no DVT or cellulitis there is no calf tenderness present. There is no sinus or clubbing. Capillary refill is normal. PROJECT BUILDER: The patient is conscious awake alert oriented 3 with no focal deficits. PSYCHIATRIC: The patient judgment and insight are intact his affect her affect is normal. 11/19/17 11/20/1711/21/18 11:35 04:22 04:25 Sodium 139.4 Potassium 3.9 Chloride 106 Carbon Dioxide 28 BUN 13 Creatinine 1.49 H Est GFR (Non-Af Amer) 34 L Glucose 105 Calcium 8.9 Troponin I 0.104 Triglycerides 193 H Cholesterol 127.51 LDL Cholesterol Direct 60 VLDL Cholesterol 38.6 H HDL Cholesterol 34 L 11/21/17 04:25 Sodium Potassium Chloride Carbon Dioxide BUN Creatinine Est GFR (Non-Af Amer) Glucose Calcium Troponin I 0.063 Triglycerides Cholesterol LDL Cholesterol Direct VLDL Cholesterol HDL Cholesterol IMPRESSION/RECOMMENDATION: 1. NON-ST elevation TN: The patient has post infarct angina. The patient is very vehement about getting cardiac catheterization. She wants to be treated medically. She is aware of the risks of this. Which include TN CHF and cardiac arrest, ventricular arrhythmias. Note that the patient's anticoagulation has been stopped. Since this is short lived anginal episode would not restart the patient's anticoagulation at present. Continue the patient on aspirin ,continue the patient on Brilinta, continue beta-blockers and nitrates. Will add Ranexa to the patient's regimen. Unable to assess wall motion normality of the echo due to poor imaging. 2. Coronary artery disease. History of coronary bypass graft surgery, and history of prior MIs 2 in the past. 3. History of congestive heart failure in the past. At present the patient's LV ejection fraction is normal in spite of her suboptimal echo. 4. Peripheral vascular disease: Patient is no calf or buttock claudication. 5. COPD: At present stable at baseline, without symptoms or signs of acute exacerbation. 6. History of tobacco abuse. Tobacco cessation counseling is been given to the patient. 3 minutes spent on this. 7. Hypo-thyroidism: Continue replacement. #8 dyslipidemia: Note that the patient's HDL levels are low at 34. The patient is also already on statin continue the same. Will closely observe the patient in view of the EKG changes. If the patient should have recurrent chest pain with neck restart the patient's full dose anticoagulation.
[2017-11-21 15:50] LABS: CREATINE KINASE MB 1.33 ng/mL (<4.55); TROPONIN I 0.037 ng/mL
--- NOTE | 2017-11-21 16:10 | RADIOLOGY REPORT (SQ) ---
EXAM DESCRIPTION: CHEST SINGLE VIEW COMPLETED DATE/TIME: 11/21/2017 4:03 pm REASON FOR STUDY: rhythm change COMPARISON: 11/18/2017 NUMBER OF VIEWS: One view. TECHNIQUE: Single frontal radiographic view of the chest acquired. LIMITATIONS: None. FINDINGS: LUNGS AND PLEURA: No opacities, masses or pneumothorax. No pleural effusion. MEDIASTINUM AND HILAR STRUCTURES: No masses or contour abnormality. HEART AND VASCULATURE: Cardiac enlargement. Vascular congestion. BONES: No acute findings. HARDWARE: None in the chest. OTHER: No other significant finding. IMPRESSION: CARDIAC ENLARGEMENT. VASCULAR CONGESTION. TECHNICAL DOCUMENTATION: JOB ID: [id number] [employer]- All Rights Reserved Reading location - IP/workstation name: [email or web address]
--- NOTE | 2017-11-21 17:10 | PDOC PROGRESS REPORT ---
Subjective Progress Note for:: 11/21/17 Subjective:: PEBBLES ENAMORADO is a 77 year old female with a past medical history of CT 2 (s/ p angioplasty), CAD, PVD, CHF, hypertension, hyperlipidemia, COPD, CKD 2, remote breast cancer, obesity, chronic pain, opiate dependent who was admitted for non-STEMI. The patient is seen on morning rounds. She is found sitting up to the recliner on room air, eating her breakfast. She tells me that she is feeling much better today. She denies any additional episodes of back pain, chest pain, neck pain. She does endorse continued left knee pain, described as aching and throbbing. She is concerned because the pain today seems to radiate to her medial lower leg. She reports that she has had to have a fasciotomy to that leg previously and is curious to about the possibility of her having developed a blood clot. Otherwise, she reports that her constipation has resolved; she has had multiple bowel movements. She also reports increased frequency of urination, but denies dysuria, hematuria, suprapubic abdominal pain. She has no other questions or concerns today. This afternoon I did receive a call from nursing reporting that the patient had developed chest aching that lasted several minutes and has subsequently resolved. At that time, the nurse noted that she had inverted T waves on her telemetry. Stat orders were provided and Dr. Garcia was subsequently updated. Reason For Visit: NON-ST ELEVATION (NSTEMI) MYOCARDIAL INFARCTION Physical Exam Vital Signs: Temp Pulse Resp BP Pulse Ox 97.8 F 55 L 18 149/49 H 99 11/21/17 15:11 11/21/17 15:11 11/21/17 15:11 11/21/17 15:50 11/21/17 15:11 Intake & Output 11/20/17 11/21/17 11/22/17 06:59 06:59 06:59 Intake Total 0 587 Balance 0 587 Weight 98.4 kg 100.1 kg General appearance: PRESENT: no acute distress, well-developed, well-nourished Head exam: PRESENT: atraumatic, normocephalic Eye exam: PRESENT: conjunctiva pink, EOMI, PERRLA. ABSENT: scleral icterus Ear exam: PRESENT: normal external ear exam Mouth exam: PRESENT: moist, tongue midline Neck exam: ABSENT: carotid bruit, JVD, lymphadenopathy, thyromegaly Respiratory exam: PRESENT: clear to auscultation evita. ABSENT: rales, rhonchi, wheezes Cardiovascular exam: PRESENT: RRR, +S1, +S2, systolic murmur. ABSENT: diastolic murmur, rubs Pulses: PRESENT: normal dorsalis pedis pul Vascular exam: PRESENT: normal capillary refill GI/Abdominal exam: PRESENT: normal bowel sounds, soft. ABSENT: distended, guarding, mass, organolmegaly, rebound, tenderness Rectal exam: PRESENT: deferred Extremities exam: PRESENT: full ROM. ABSENT: calf tenderness, clubbing, pedal edema Neurological exam: PRESENT: alert, awake, oriented to person, oriented to place , oriented to time, oriented to situation, CN II-XII grossly intact. ABSENT: motor sensory deficit Psychiatric exam: PRESENT: appropriate affect, normal mood. ABSENT: homicidal ideation, suicidal ideation Skin exam: PRESENT: dry, intact, warm. ABSENT: cyanosis, rash Results Laboratory Results: 11/20/17 04:22 11/21/17 15:00 11/20/17 11/21/17 11/21/17 17:20 04:25 12:10 Sodium 139.4 Potassium 3.9 Chloride 106 Carbon Dioxide 28 Anion Gap 5 BUN 13 Creatinine 1.49 H Est GFR ( Amer) 41 L Est GFR (Non-Af Amer) 34 L Glucose 105 Calcium 8.9 Magnesium Urine Color YELLOW Urine Appearance CLEAR Urine pH 5.0 Ur Specific [place] 1.019 Urine Protein NEGATIVE Urine Glucose (UA) NEGATIVE Urine Ketones NEGATIVE Urine Blood NEGATIVE Urine Nitrite NEGATIVE Ur Leukocyte Esterase NEGATIVE Urine WBC (Auto) 1 Urine RBC (Auto) 0 Stool Occult Blood NEGATIVE 11/21/17 11/21/17 12:45 15:00 Sodium 138.5 Potassium 4.2 Chloride 104 Carbon Dioxide 30 Anion Gap 5 BUN 15 Creatinine 1.38 H Est GFR ( Amer) 45 L Est GFR (Non-Af Amer) 37 L Glucose 111 H Calcium 8.5 Magnesium 2.4 H Urine Color STRAW Urine Appearance CLOUDY Urine pH 6.0 Ur Specific [place] 1.015 Urine Protein 30 H Urine Glucose (UA) NEGATIVE Urine Ketones NEGATIVE Urine Blood NEGATIVE Urine Nitrite NEGATIVE Ur Leukocyte Esterase NEGATIVE Urine WBC (Auto) 6 Urine RBC (Auto) 1 Stool Occult Blood 11/21/17 11/21/17 11/21/17 04:25 15:00 15:00 Creatine Kinase 83 CK-MB (CK-2) 1.33 Troponin I 0.063 0.037 Impressions: Abdomen/Pelvis CT 11/19/17 00:00 IMPRESSION: NO SIGNIFICANT OR ACUTE FINDING IN THE ABDOMEN OR PELVIS ON CT SCAN WITH IV CONTRAST. Hip X-Ray 11/20/17 00:00 IMPRESSION: NEGATIVE STUDY OF THE LEFT HIP AND PELVIS. NO RADIOGRAPHIC EVIDENCE OF ACUTE INJURY. Knee X-Ray 11/20/17 00:00 IMPRESSION: No acute fracture. Osteoarthritis. Chest X-Ray 11/21/17 00:00 IMPRESSION: CARDIAC ENLARGEMENT. VASCULAR CONGESTION. Assessment & Plan - Diagnosis (1) NSTEMI (non-ST elevated myocardial infarction) Is this a current diagnosis for this admission?: Yes Plan: The patient presented with atypical chest pain that has gradually worsened over the last 3 days with multiple risk factors including obesity, hypertension, hyperlipidemia, CAD, CHF, and previous CT 2. EKG demonstrated sinus rhythm with probable LVH; ST segment is without elevation or depression, no acute findings. Chest x-ray is benign; there is bibasilar density, radiologist unable to comment on atelectasis versus pneumonia. The patient is afebrile with a normal white count and no symptoms suggestive of pneumonia at this time. Initial troponin was elevated at 0.096 and trended upward to a peak of 0.156, trended down to 0.104 and no longer following. Repeat EKG with deepening inversion of t-waves. Echocardiogram has been obtained; final read is pending. The patient is admitted to the medical floor on continuous cardiac telemetry. Lovenox is discontinued following 48 hours of therapy. We will continue daily aspirin therapy. Continue her home dose atorvastatin. Continue Brilinta 90 mg twice daily. Ranexa added per Dr. Garcia today. We will continue PPI for prophylaxis. Continue increased Imdur dose of extended release 150 mg daily. Norvasc and metoprolol are continued. Cardiology has been consulted; Medication adjustments per Dr. West. (2) HTN (hypertension) Qualifiers: Hypertension type: unspecified Qualified Code(s): I10 - Essential (primary ) hypertension Is this a current diagnosis for this admission?: Yes Plan: The patient's home medications of isosorbide, metoprolol, amlodipine, hydralazine, and furosemide are continued. Medication adjustments per Jenna. (3) HLD (hyperlipidemia) Is this a current diagnosis for this admission?: Yes Plan: We will continue the patient's home dose atorvastatin. (4) CAD (coronary artery disease) Qualifiers: Coronary Disease-Associated Artery/Lesion type: unspecified vessel or lesion type Is this a current diagnosis for this admission?: Yes Plan: Plan as above. (5) CHF (congestive heart failure) Qualifiers: Heart failure type: unspecified Heart failure chronicity: chronic Qualified Code(s): I50.9 - Heart failure, unspecified Is this a current diagnosis for this admission?: Yes Plan: The patient reports a history of CHF; no evidence of acute exacerbation. She does not recall when her last echocardiogram was or what the findings were. We will continue her home dose medications as above. Pt has been refusing her home dose Lasix; strongly encouraged to resume medication. We will update echocardiogram; report is pending. Daily weights. Cardiac diet. (6) COPD (chronic obstructive pulmonary disease) Qualifiers: COPD type: unspecified COPD Qualified Code(s): J44.9 - Chronic obstructive pulmonary disease, unspecified Is this a current diagnosis for this admission?: Yes Plan: Patient endorses a history of COPD; without exacerbation at this time. Will provide supplemental oxygen and nebulizer treatments as needed. (7) GERD (gastroesophageal reflux disease) Is this a current diagnosis for this admission?: Yes Plan: Continue PPI. (8) Anxiety Is this a current diagnosis for this admission?: Yes Plan: Continue home medications; trintellix and xanax. (9) Opiate dependence, continuous Is this a current diagnosis for this admission?: Yes Plan: Will continue her home dose oxycodone for chronic pain. (10) Knee pain, left Qualifiers: Chronicity: acute Qualified Code(s): M25.562 - Pain in left knee Is this a current diagnosis for this admission?: Yes Plan: Patient reports left knee pain; reports that she felt a pop yesterday when transferring from stretcher to bed. She is noted to have slight edema to her left calf which patient reports is chronic following previous orthopedic procedure. She does have full range of motion. Left hip and knee imaging are benign; chronic degenerative changes noted to the knee. Encourage use of Tylenol, ice, position changes. Continue the patient's home chronic pain medication regiment. (11) Urinary frequency Is this a current diagnosis for this admission?: Yes Plan: Likely related to IV fluid rehydration for SHAVON yesterday. Urinalysis today is negative for UTI. - Time Time Spent with patient: 15-24 minutes Medications reviewed and adjusted accordingly: Yes
--- NOTE | 2017-11-21 17:12 | XCELERA REPORT ---
[address] [address] Transthoracic Echocardiogram Report Name: PEBBLES ENAMORADO Age: 77 yrs Gender: Female : 1940 Patient Status: Inpatient Patient Location: [address] Study Date: 11/19/2017 12:33 PM Height: 62 in Weight: 202 lb BSA: 1.9 m2 Procedure: A two-dimensional transthoracic echocardiogram with color flow Doppler was performed. Study Quality: Technically suboptimal. The study was technically limited with all images being suboptimal in quality. The study was technically difficult with many images being suboptimal in quality. Images were not obtained from all of the standard acoustic windows due to the limited scope of the study. Reason For Study: Hx CHF, nstemi History: CHF /NSTEMI. Ordering Physician: MORENO SAMPSON Performed By: Catherine Garrido Interpretation Summary Prtobably normal size. LVEF is normal at 60% in the limited views obtained. Doppler measurements suggest impaired left ventricular relaxation, which is associated with grade I/IV or mild diastolic dysfunction The anteroseptum amd posterior chow contract normally.Probably all mid LV wall segments contract normally.In the apical 4 chamber views only the IV septum is seen zeenat normally.The lateral wall not seen.No true apical 2 chamber views obtained, hence cannot comment on the basal and apical inferior and anterior wall segments.No gross thrombus seen. The right ventricle is not well visualized secondary to technical limitations The left atrial size is normal. There is no evidence of mitral valve prolapse. There is no mitral valve stenosis. There is no aortic valve stenosis There is no LVOT obstruction. There is aortic sclerosis without aortic stenosis. Probaly trace AR. There is no tricuspid stenosis. There is a trace to mild amount of tricuspid regurgitation There is mild pulmonary hypertension by echo RVSp is 34 mm of Hg , with RA mean of 10. There is no pulmonic valvular stenosis. There is a mild to moderate amount of pulmonic regurgitation There is no pericardial effusion. MMode/2D Measurements & Calculations RVDd: 2.6 cm LVIDd: 5.2 cm FS: 32.6 % Ao root diam: 2.2 cm IVSd: 1.1 cm LVIDs: 3.5 cm EDV(Teich): 128.2 ml Ao root area: 3.8 cm2 LVPWd: 1.1 cm ESV(Teich): 50.6 ml LA dimension: 3.7 cm EF(Teich): 60.5 % Doppler Measurements & Calculations MV E max romero: MV P1/2t max ormero: Ao V2 max: LV V1 max P.3 cm/sec 86.9 cm/sec 117.1 cm/sec 3.4 mmHg MV A max romero: MV P1/2t: 70.4 msec Ao max PG: LV V1 mean P.2 cm/sec MVA(P1/2t): 3.1 cm2 5.5 mmHg 1.9 mmHg MV E/A: 0.59 MV dec slope: Ao V2 mean: LV V1 max: 86.5 cm/sec 91.8 cm/sec 361.7 cm/sec2 Ao mean PG: LV V1 mean: MV dec time: 0.28 sec 3.3 mmHg 65.4 cm/sec Ao V2 VTI: 25.9 cmLV V1 VTI: 24.6 cm PA V2 max: PI end-d romero: TR max romero: MV P1/2t-pr_phl: 109.9 cm/sec 101.1 cm/sec 241.6 cm/sec 70.4 msec PA max PG: TR max P.8 mmHg 23.4 mmHg Left Ventricle There is normal left ventricular wall thickness. Prtobably normal size. LVEF is normal at 60% in the limited views obtained. Doppler measurements suggest impaired left ventricular relaxation, which is associated with grade I/IV or mild diastolic dysfunction. The anteroseptum amd posterior chow contract normally.Probably all mid LV wall segments contract normally.In the apical 4 chamber views only the IV septum is seen zeenat normally.The lateral wall not seen.No true apical 2 chamber views obtained, hence cannot comment on the basal and apical inferior and anterior wall segments.No gross thrombus seen. Right Ventricle The right ventricle is not well visualized secondary to technical limitations. Atria Right atrium not well visualized secondary to technical limitations. The left atrial size is normal. Mitral Valve There is no evidence of mitral valve prolapse. There is no mitral valve stenosis. There is a trace amount of mitral regurgitation. Aortic Valve There is no aortic valvular vegetation. There is no aortic valve stenosis. There is no LVOT obstruction. There is aortic sclerosis without aortic stenosis. Probaly trace AR. Tricuspid Valve There is no tricuspid stenosis. There is a trace to mild amount of tricuspid regurgitation. There is mild pulmonary hypertension by echo. RVSp is 34 mm of Hg , with RA mean of 10. Pulmonic Valve There is no pulmonic valvular stenosis. There is a mild to moderate amount of pulmonic regurgitation. Great Vessels The aortic root is not well visualized. Effusions There is no pericardial effusion. : MORENO SAMPSON > Micaela Garcia
[2017-11-21] MEDS: RANOLAZINE 500 MG TAB.SR.12H PO SCH (17:52)
[2017-11-21] MEDS: ATORVASTATIN CALCIUM 40 MG TABLET PO SCH (21:22)
[2017-11-21] MEDS: ALPRAZOLAM 0.5 MG TABLET PO PRN (21:22)
[2017-11-21] MEDS: POLYETHYLENE GLYCOL 3350 POWDER 17 GM/1 PACKET PO SCH (21:23)
--- NOTE | 2017-11-21 21:26 | EKG REPORT ---
SEVERITY:- ABNORMAL ECG - SINUS BRADYCARDIA ABNORMAL T, CONSIDER ISCHEMIA, LATERAL LEADS : Confirmed by: Oliva Mohamud 21-Nov-2017 21:26:15
--- NOTE | 2017-11-21 21:36 | EKG REPORT ---
SEVERITY:- ABNORMAL ECG - SINUS BRADYCARDIA PROBABLE LVH WITH SECONDARY REPOL ABNRM : Confirmed by: Oliva Mohamud 21-Nov-2017 21:35:52
[2017-11-22 05:58] LABS: ANION GAP 7 (5-19); BLOOD UREA NITROGEN 16 mg/dL (7-20); CALCIUM 8.7 mg/dL (8.4-10.2); CARBON DIOXIDE 29 mmol/L (22-30); CHLORIDE 103 mmol/L (98-107); GLUCOSE 98 mg/dL (75-110); POTASSIUM 3.7 mmol/L (3.6-5.0)
[2017-11-22] MEDS: RANOLAZINE 500 MG TAB.SR.12H PO SCH ×2 (06:56→17:46)
[2017-11-22] MEDS: GABAPENTIN 300 MG CAPSULE PO SCH ×3 (06:56→23:53)
[2017-11-22] MEDS: HYDRALAZINE HCL 50 MG TABLET PO SCH ×3 (06:56→23:52)
[2017-11-22] MEDS: LEVOTHYROXINE SODIUM 0.1 MG TABLET PO SCH (06:56)
[2017-11-22] MEDS: LANSOPRAZOLE 30 MG TAB.RAP.DR PO SCH (06:56)
[2017-11-22] MEDS: PENTOXIFYLLINE 400 MG TABLET.SA PO SCH ×3 (06:56→23:54)
[2017-11-22] MEDS: OXYCODONE HCL IR 5 MG TABLET PO PRN (07:48)
[2017-11-22] MEDS: POTASSIUM CHLORIDE 10 MEQ CAPSULE.ER PO SCH (09:30)
[2017-11-22] MEDS: ASPIRIN 81 MG TABLET, CHEWABLE PO SCH (09:30)
[2017-11-22] MEDS: LIDOCAINE 5% (700 MG) TRANSDERMAL ADH..PATCH TP SCH (09:30)
[2017-11-22] MEDS: ISOSORBIDE MONONITRATE 60 MG TAB.ER.24H PO SCH (09:30)
[2017-11-22] MEDS: DOCUSATE SODIUM 100 MG CAPSULE PO SCH ×2 (09:30→17:46)
[2017-11-22] MEDS: LIOTHYRONINE SODIUM 5 MCG TABLET PO SCH (09:31)
[2017-11-22] MEDS: ENOXAPARIN SODIUM INJ 40 MG/0.4 ML DISP.SYRIN SUBCUT SCH (09:31)
[2017-11-22] MEDS: TICAGRELOR 90 MG TABLET PO SCH ×2 (09:31→17:46)
[2017-11-22] MEDS: AMLODIPINE BESYLATE 10 MG TABLET PO SCH (09:31)
[2017-11-22] MEDS: ONDANSETRON HCL INJ/PF 4 MG/2 ML SDV IV PRN ×2 (09:36→19:34)
[2017-11-22] MEDS: METOPROLOL TARTRATE 25 MG TABLET PO SCH ×2 (11:00→23:53)
[2017-11-22] MEDS ORDERED: BISACODYL 10 MG SUPP.RECT PR PRN (12:06)
[2017-11-22] MEDS ORDERED: BISACODYL 10 MG SUPP.RECT PR ONE (12:30)
--- NOTE | 2017-11-22 13:38 | PDOC PROGRESS REPORT ---
Subjective Progress Note for:: 11/22/17 Subjective:: PEBBLES ENAMORADO is a 77 year old female with a past medical history of AK 2 (s/ p angioplasty), CAD, PVD, CHF, hypertension, hyperlipidemia, COPD, CKD 2, remote breast cancer, obesity, chronic pain, opiate dependent who was admitted for non-STEMI. The patient is seen on morning rounds. She is found sitting up to the recliner on room air. She reports that she has had no further episodes of chest discomfort or palpitations since yesterday afternoon. However, she does complain of headache , nausea, and indigestion. She is concerned that this may be related to her non -STEMI as she had the symptoms at the time of her presentation to the emergency department. Although, she does admit that she has only had one hard stool and continues to feel constipated. She continues to have left knee pain, although this is slightly improved today and the swelling has resolved. It is difficult to assess her palpitations as being physiological versus anxiety /stress as she has learned that her house is bloated and it does not know the totality of the damage and has had difficulty reaching some of her family members. She is very concerned about her possible living situation postdischarge. She is assured that her facilities planner will meet with her prior to ensure that she has a safe discharge plan. She has no other questions or concerns today. No concerns per nursing. Reason For Visit: NON-ST ELEVATION (NSTEMI) MYOCARDIAL INFARCTION Physical Exam Vital Signs: Temp Pulse Resp BP Pulse Ox 97.3 F 54 L 18 123/40 L 93 11/22/17 12:13 11/22/17 12:13 11/22/17 12:13 11/22/17 12:13 11/22/17 12:13 Intake & Output 11/21/17 11/22/17 11/23/17 06:59 06:59 06:59 Intake Total 587 970 Output Total 350 Balance 587 620 Weight 100.1 kg 98.7 kg General appearance: PRESENT: no acute distress, cooperative, obese, well- developed, well-nourished Head exam: PRESENT: atraumatic, normocephalic Eye exam: PRESENT: conjunctiva pink, EOMI, PERRLA. ABSENT: scleral icterus Ear exam: PRESENT: normal external ear exam Mouth exam: PRESENT: moist, tongue midline Neck exam: ABSENT: carotid bruit, JVD, lymphadenopathy, thyromegaly Respiratory exam: PRESENT: clear to auscultation evita, symmetrical, unlabored. ABSENT: rales, rhonchi, wheezes Cardiovascular exam: PRESENT: RRR, +S1, +S2, systolic murmur. ABSENT: diastolic murmur, rubs Pulses: PRESENT: normal dorsalis pedis pul Vascular exam: PRESENT: normal capillary refill GI/Abdominal exam: PRESENT: distended, normal bowel sounds, soft. ABSENT: guarding, mass, organolmegaly, rebound, tenderness Rectal exam: PRESENT: deferred Extremities exam: PRESENT: full ROM. ABSENT: calf tenderness, clubbing, pedal edema Neurological exam: PRESENT: alert, awake, oriented to person, oriented to place , oriented to time, oriented to situation, CN II-XII grossly intact. ABSENT: motor sensory deficit Psychiatric exam: PRESENT: appropriate affect, normal mood. ABSENT: homicidal ideation, suicidal ideation Skin exam: PRESENT: dry, intact, warm. ABSENT: cyanosis, rash Results Laboratory Results: 11/20/17 04:22 11/22/17 04:10 11/21/17 11/21/17 11/22/17 12:45 15:00 04:10 Sodium 138.5 139.0 Potassium 4.2 3.7 Chloride 104 103 Carbon Dioxide 30 29 Anion Gap 5 7 BUN 15 16 Creatinine 1.38 H 1.27 H Est GFR ( Amer) 45 L 50 L Est GFR (Non-Af Amer) 37 L 41 L Glucose 111 H 98 Calcium 8.5 8.7 Magnesium 2.4 H Urine Color STRAW Urine Appearance CLOUDY Urine pH 6.0 Ur Specific [place] 1.015 Urine Protein 30 H Urine Glucose (UA) NEGATIVE Urine Ketones NEGATIVE Urine Blood NEGATIVE Urine Nitrite NEGATIVE Ur Leukocyte Esterase NEGATIVE Urine WBC (Auto) 6 Urine RBC (Auto) 1 11/21/17 11/21/17 11/21/17 04:25 15:00 15:00 Creatine Kinase 83 CK-MB (CK-2) 1.33 Troponin I 0.063 0.037 Impressions: Abdomen/Pelvis CT 11/19/17 00:00 IMPRESSION: NO SIGNIFICANT OR ACUTE FINDING IN THE ABDOMEN OR PELVIS ON CT SCAN WITH IV CONTRAST. Hip X-Ray 11/20/17 00:00 IMPRESSION: NEGATIVE STUDY OF THE LEFT HIP AND PELVIS. NO RADIOGRAPHIC EVIDENCE OF ACUTE INJURY. Knee X-Ray 11/20/17 00:00 IMPRESSION: No acute fracture. Osteoarthritis. Chest X-Ray 11/21/17 00:00 IMPRESSION: CARDIAC ENLARGEMENT. VASCULAR CONGESTION. Assessment & Plan - Diagnosis (1) NSTEMI (non-ST elevated myocardial infarction) Is this a current diagnosis for this admission?: Yes Plan: The patient presented with atypical chest pain that has gradually worsened over the last 3 days with multiple risk factors including obesity, hypertension, hyperlipidemia, CAD, CHF, and previous AK 2. EKG demonstrated sinus rhythm with probable LVH; ST segment is without elevation or depression, no acute findings. Chest x-ray is benign; there is bibasilar density, radiologist unable to comment on atelectasis versus pneumonia. The patient is afebrile with a normal white count and no symptoms suggestive of pneumonia at this time. Initial troponin was elevated at 0.096 and trended upward to a peak of 0.156, down to 0.037 and no longer following. Repeat EKG with deepening inversion of t-waves. Echocardiogram results normal LVEF with mild diastolic dysfunction and mild pulmonary hypertension. Wall motion is difficult to interpret due to suboptimal exam. The patient is admitted to the medical floor on continuous cardiac telemetry. Lovenox was discontinued following 48 hours of therapy. We will continue daily aspirin and statin therapy. Continue Brilinta 90 mg twice daily. Have started Ranexa. Imdur has been increased to 150 mg daily. Norvasc and metoprolol are continued. Cardiology has been consulted; Medication adjustments per Dr. West. (2) HTN (hypertension) Qualifiers: Hypertension type: unspecified Qualified Code(s): I10 - Essential (primary ) hypertension Is this a current diagnosis for this admission?: Yes Plan: The patient's home medications of isosorbide, metoprolol, amlodipine, hydralazine, and furosemide are continued. Medication adjustments per Jenna. (3) HLD (hyperlipidemia) Is this a current diagnosis for this admission?: Yes Plan: We will continue the patient's home dose atorvastatin. (4) CAD (coronary artery disease) Qualifiers: Coronary Disease-Associated Artery/Lesion type: unspecified vessel or lesion type Is this a current diagnosis for this admission?: Yes Plan: Plan as above. (5) CHF (congestive heart failure) Qualifiers: Heart failure type: unspecified Heart failure chronicity: chronic Qualified Code(s): I50.9 - Heart failure, unspecified Is this a current diagnosis for this admission?: Yes Plan: The patient reports a history of CHF; no evidence of acute exacerbation. Echo revealed normal LVEF with mild diastolic dysfunction. Medications as above. Daily weights. Cardiac diet. (6) COPD (chronic obstructive pulmonary disease) Qualifiers: COPD type: unspecified COPD Qualified Code(s): J44.9 - Chronic obstructive pulmonary disease, unspecified Is this a current diagnosis for this admission?: Yes Plan: Patient endorses a history of COPD; without exacerbation at this time. Will provide supplemental oxygen and nebulizer treatments as needed. (7) GERD (gastroesophageal reflux disease) Is this a current diagnosis for this admission?: Yes Plan: Continue PPI. (8) Anxiety Is this a current diagnosis for this admission?: Yes Plan: Continue home medications; trintellix and xanax. (9) Opiate dependence, continuous Is this a current diagnosis for this admission?: Yes Plan: Will continue her home dose oxycodone for chronic pain. (10) Knee pain, left Qualifiers: Chronicity: acute Qualified Code(s): M25.562 - Pain in left knee Is this a current diagnosis for this admission?: Yes Plan: Patient reports left knee pain; reports that she felt a pop yesterday when transferring from stretcher to bed. Today, the patient states that her knee pain is likely worsened because she does not have her knee braces with her. She is offered a knee immobilizer or Rocael wrap which she declines. She is noted to have slight edema to her left calf which patient reports is chronic following previous orthopedic procedure. She does have full range of motion. Left hip and knee imaging are benign; chronic degenerative changes noted to the knee. Encourage use of Tylenol, ice, elevation, position changes. Continue the patient's home chronic pain medication regiment. IV morphine 1 mg every 6 hours breakthrough pain only. (11) Urinary frequency Is this a current diagnosis for this admission?: Yes Plan: Resolved; likely related to IV fluid rehydration. Urinalysis is negative for UTI. (12) Constipation Qualifiers: Constipation type: unspecified constipation type Qualified Code(s): K59.00 - Constipation, unspecified Is this a current diagnosis for this admission?: Yes Plan: Continue daily MiraLAX and Colace. Dulcolax today; patient declined fleets enema. We will also provide a one-time dose of lactulose. - Time Time Spent with patient: 15-24 minutes Medications reviewed and adjusted accordingly: Yes Anticipated discharge: Home Within: within 24 hours
[2017-11-22] MEDS ORDERED: LACTULOSE SYRUP 20 GM/30 ML UDCUP PO ONE (14:30)
--- NOTE | 2017-11-22 20:44 | Progress Note ---
Provider Note Provider Note: PROGRESS NOTE by Dr. Micaela Garcia for 11/22/2017. Selected Entries 11/22/17 12:13 Temperature 97.3 F Temperature Oral Source Pulse Rate 54 L Respiratory 18 Rate Blood Pressure 123/40 L Blood Pressure 67 Mean O2 Sat by Pulse 93 Oximetry Oxygen Delivery Room Air Method 11/21/17 11/22/17 15:00 04:10 Sodium 139.0 Potassium 3.7 Chloride 103 Carbon Dioxide 29 BUN 16 Creatinine 1.27 H Est GFR (Non-Af Amer) 41 L Glucose 98 Calcium 8.7 CK-MB (CK-2) 1.33 Troponin I 0.037
[2017-11-22] MEDS: MORPHINE SULFATE 10 MG/ML INJ IV PRN (23:42)
[2017-11-22] MEDS: POLYETHYLENE GLYCOL 3350 POWDER 17 GM/1 PACKET PO SCH (23:53)
[2017-11-22] MEDS: ATORVASTATIN CALCIUM 40 MG TABLET PO SCH (23:53)
[2017-11-23] MEDS: GABAPENTIN 300 MG CAPSULE PO SCH ×3 (06:41→22:15)
[2017-11-23] MEDS: LEVOTHYROXINE SODIUM 0.1 MG TABLET PO SCH (06:41)
[2017-11-23] MEDS: HYDRALAZINE HCL 50 MG TABLET PO SCH ×3 (06:41→22:15)
[2017-11-23] MEDS: LANSOPRAZOLE 30 MG TAB.RAP.DR PO SCH (06:41)
[2017-11-23] MEDS: RANOLAZINE 500 MG TAB.SR.12H PO SCH ×2 (06:42→18:50)
[2017-11-23] MEDS: PENTOXIFYLLINE 400 MG TABLET.SA PO SCH ×3 (06:42→22:16)
[2017-11-23] MEDS: MORPHINE SULFATE 10 MG/ML INJ IV PRN ×2 (06:46→13:51)
[2017-11-23 06:59] LABS: HEMATOCRIT 39.5 % (36.0-47.0); HEMOGLOBIN 13.5 g/dL (12.0-15.5); MEAN CORPUSCULAR HEMOGLOBIN 28.4 pg (27.0-33.4); MEAN CORPUSCULAR HGB CONC 34.2 g/dL (32.0-36.0); MEAN CORPUSCULAR VOLUME 83 fl (80-97); PLATELET COUNT 174 10^3/uL (150-450); RED BLOOD COUNT 4.75 10^6/uL (3.72-5.28); RED CELL DISTRIBUTION WIDTH 15.1 % (11.5-14.0); WHITE BLOOD COUNT 6.2 10^3/uL (4.0-10.5)
[2017-11-23] MEDS: POTASSIUM CHLORIDE 10 MEQ CAPSULE.ER PO SCH (11:05)
[2017-11-23] MEDS: DOCUSATE SODIUM 100 MG CAPSULE PO SCH ×2 (11:05→18:50)
[2017-11-23] MEDS: METOPROLOL TARTRATE 25 MG TABLET PO SCH ×2 (11:05→22:16)
[2017-11-23] MEDS: ASPIRIN 81 MG TABLET, CHEWABLE PO SCH (11:05)
[2017-11-23] MEDS: ISOSORBIDE MONONITRATE 60 MG TAB.ER.24H PO SCH (11:05)
[2017-11-23] MEDS: FUROSEMIDE 20 MG TABLET PO SCH (11:05)
[2017-11-23] MEDS: AMLODIPINE BESYLATE 10 MG TABLET PO SCH (11:06)
[2017-11-23] MEDS: LIDOCAINE 5% (700 MG) TRANSDERMAL ADH..PATCH TP SCH (11:06)
[2017-11-23] MEDS: TICAGRELOR 90 MG TABLET PO SCH ×2 (11:07→18:50)
[2017-11-23] MEDS: OXYCODONE HCL IR 5 MG TABLET PO PRN (11:07)
[2017-11-23] MEDS: LIOTHYRONINE SODIUM 5 MCG TABLET PO SCH (11:07)
[2017-11-23] MEDS: ENOXAPARIN SODIUM INJ 40 MG/0.4 ML DISP.SYRIN SUBCUT SCH (11:08)
[2017-11-23] MEDS: PROMETHAZINE HCL INJ 25 MG/1 ML VIAL IV PRN ×2 (11:32→18:51)
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
--- NOTE | 2017-11-23 16:54 | RADIOLOGY REPORT (SQ) ---
EXAM DESCRIPTION: CT ABD/PELVIS ORAL ONLY COMPLETED DATE/TIME: 11/23/2017 4:40 pm REASON FOR STUDY: abd pain COMPARISON: None. TECHNIQUE: CT scan of the abdomen and pelvis performed with oral contrast and no intravenous contras t. Images reviewed with lung, soft tissue, and bone windows. Reconstructed coronal and sagittal MPR i mages reviewed. All images stored on PACS. All CT scanners at this facility use dose modulation, iterative reconstruction, and/or weight based d osing when appropriate to reduce radiation dose to as low as reasonably achievable (ALARA). [facility]: Dose Right [facility]: CareDose [facility]: Dose Right [facility]: Teradose 4D [facility]: [employer] RADIATION DOSE: CT Rad equipment meets quality standard of care and radiation dose reduction techniq ues were employed. CTDIvol: 20.7 mGy. DLP: 1034 mGy-cm.mGy. LIMITATIONS: None. FINDINGS: LOWER CHEST: No significant findings. No nodules or infiltrates. NON-CONTRASTED LIVER, SPLEEN, ADRENALS: Evaluation limited by lack of IV contrast. No identified sign ificant masses. PANCREAS: No masses. No peripancreatic inflammatory changes. GALLBLADDER: No identified stones by CT criteria. No inflammatory changes to suggest cholecystitis. RIGHT KIDNEY AND URETER: No solid masses. No significant calcification. No hydronephrosis or hydroure ter. LEFT KIDNEY AND URETER: Atrophic. No solid masses. No significant calcification. No hydronephrosis o r hydroureter. AORTA AND RETROPERITONEUM: No aneurysm. No retroperitoneal masses or adenopathy. Scattered vascular calcifications. Bilateral femoral artery bypass grafts. BOWEL AND PERITONEAL CAVITY: Scattered colonic diverticuli No obvious masses or inflammatory changes. No free fluid. APPENDIX: Normal. PELVIS, BLADDER, AND ABDOMINAL WALL: No abnormal pelvic masses. No abdominal wall hernias. Bladder un remarkable. BONES: No significant findings. Degenerative changes in the spine. OTHER: No other significant finding. IMPRESSION: 1. COLONIC DIVERTICULOSIS. NO CT FINDINGS OF ACUTE DIVERTICULITIS. 2. ATROPHIC LEFT KIDNEY. 3. NO OTHER SIGNIFICANT OR ACUTE FINDINGS. TECHNICAL DOCUMENTATION: JOB ID: [id number] Quality ID # [id number]: Final reports with documentation of one or more dose reduction techniques (e.g., Au tomated exposure control, adjustment of the mA and/or kV according to patient size, use of iterative reconstruction technique) 2010 [employer]- All Rights Reserved Reading location - IP/workstation name: [email or web address]
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
[2017-11-23] MEDS: POLYETHYLENE GLYCOL 3350 POWDER 17 GM/1 PACKET PO SCH (22:15)
[2017-11-23] MEDS: LACTULOSE SYRUP 20 GM/30 ML UDCUP PO SCH (22:15)
[2017-11-23] MEDS: ALPRAZOLAM 0.5 MG TABLET PO PRN (22:16)
[2017-11-23] MEDS: ATORVASTATIN CALCIUM 40 MG TABLET PO SCH (22:18)
[2017-11-23] MEDS: PHARMACY COMMUNICATION ORDER MC SCH (22:19)
[2017-11-24] MEDS: RANOLAZINE 500 MG TAB.SR.12H PO SCH ×2 (05:49→18:25)
[2017-11-24] MEDS: PENTOXIFYLLINE 400 MG TABLET.SA PO SCH ×3 (05:49→21:41)
[2017-11-24] MEDS: LEVOTHYROXINE SODIUM 0.1 MG TABLET PO SCH (05:50)
[2017-11-24] MEDS: HYDRALAZINE HCL 50 MG TABLET PO SCH ×3 (05:50→21:39)
[2017-11-24] MEDS: GABAPENTIN 300 MG CAPSULE PO SCH ×3 (05:50→21:39)
[2017-11-24] MEDS: LANSOPRAZOLE 30 MG TAB.RAP.DR PO SCH (05:50)
[2017-11-24] MEDS: LACTULOSE SYRUP 20 GM/30 ML UDCUP PO SCH ×2 (07:05→21:36)
[2017-11-24] MEDS: LIDOCAINE 5% (700 MG) TRANSDERMAL ADH..PATCH TP SCH (09:06)
[2017-11-24] MEDS: ISOSORBIDE MONONITRATE 60 MG TAB.ER.24H PO SCH (09:06)
[2017-11-24] MEDS: POTASSIUM CHLORIDE 10 MEQ CAPSULE.ER PO SCH (09:07)
[2017-11-24] MEDS: METOPROLOL TARTRATE 25 MG TABLET PO SCH ×2 (09:07→21:38)
[2017-11-24] MEDS: TICAGRELOR 90 MG TABLET PO SCH ×2 (09:07→18:25)
[2017-11-24] MEDS: LIOTHYRONINE SODIUM 5 MCG TABLET PO SCH (09:07)
[2017-11-24] MEDS: ASPIRIN 81 MG TABLET, CHEWABLE PO SCH (09:07)
[2017-11-24] MEDS: DOCUSATE SODIUM 100 MG CAPSULE PO SCH ×2 (09:07→18:25)
[2017-11-24] MEDS: AMLODIPINE BESYLATE 10 MG TABLET PO SCH (09:08)
[2017-11-24] MEDS: ENOXAPARIN SODIUM INJ 40 MG/0.4 ML DISP.SYRIN SUBCUT SCH (09:08)
[2017-11-24] MEDS: OXYCODONE HCL IR 5 MG TABLET PO PRN ×2 (13:18→21:38)
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
[2017-11-24] MEDS: ATORVASTATIN CALCIUM 40 MG TABLET PO SCH (21:40)
[2017-11-24] MEDS: PHARMACY COMMUNICATION ORDER MC SCH (21:40)
[2017-11-24] MEDS: POLYETHYLENE GLYCOL 3350 POWDER 17 GM/1 PACKET PO SCH (21:40)
[2017-11-24] MEDS: ALPRAZOLAM 0.5 MG TABLET PO PRN (21:46)
[2017-11-25 04:49] LABS: HEMOGLOBIN 13.6 g/dL (12.0-15.5); MEAN CORPUSCULAR HEMOGLOBIN 28.5 pg (27.0-33.4); MEAN CORPUSCULAR HGB CONC 34.1 g/dL (32.0-36.0); MEAN CORPUSCULAR VOLUME 84 fl (80-97); PLATELET COUNT 202 10^3/uL (150-450); RED BLOOD COUNT 4.79 10^6/uL (3.72-5.28); WHITE BLOOD COUNT 6.8 10^3/uL (4.0-10.5)
[2017-11-25 05:15] LABS: ALANINE AMINOTRANSFERASE 76 U/L (9-52); ALBUMIN 3.5 g/dL (3.5-5.0); ALKALINE PHOSPHATASE 126 U/L (38-126); ANION GAP 8 (5-19); ASPARTATE AMINO TRANSFERASE 50 U/L (14-36); BILIRUBIN,DIRECT 0.5 mg/dL (0.0-0.4); BILIRUBIN,TOTAL 0.6 mg/dL (0.2-1.3); BLOOD UREA NITROGEN 17 mg/dL (7-20); CALCIUM 9.1 mg/dL (8.4-10.2); CARBON DIOXIDE 28 mmol/L (22-30); CHLORIDE 104 mmol/L (98-107); GLUCOSE 119 mg/dL (75-110); POTASSIUM 3.8 mmol/L (3.6-5.0); SODIUM 140.4 mmol/L (137-145); TOTAL PROTEIN 6.4 g/dL (6.3-8.2)
[2017-11-25] MEDS: GABAPENTIN 300 MG CAPSULE PO SCH ×3 (06:22→22:58)
[2017-11-25] MEDS: LANSOPRAZOLE 30 MG TAB.RAP.DR PO SCH (06:22)
[2017-11-25] MEDS: HYDRALAZINE HCL 50 MG TABLET PO SCH ×3 (06:22→22:58)
[2017-11-25] MEDS: LEVOTHYROXINE SODIUM 0.1 MG TABLET PO SCH (06:22)
[2017-11-25] MEDS: RANOLAZINE 500 MG TAB.SR.12H PO SCH ×2 (06:23→17:16)
[2017-11-25] MEDS: PENTOXIFYLLINE 400 MG TABLET.SA PO SCH ×3 (06:23→22:59)
[2017-11-25] MEDS: OXYCODONE HCL IR 5 MG TABLET PO PRN ×2 (08:31→20:16)
[2017-11-25] MEDS: LIDOCAINE 5% (700 MG) TRANSDERMAL ADH..PATCH TP SCH (09:38)
[2017-11-25] MEDS: ENOXAPARIN SODIUM INJ 40 MG/0.4 ML DISP.SYRIN SUBCUT SCH (09:39)
[2017-11-25] MEDS: TICAGRELOR 90 MG TABLET PO SCH ×2 (09:41→17:16)
[2017-11-25] MEDS: ISOSORBIDE MONONITRATE 60 MG TAB.ER.24H PO SCH (09:42)
[2017-11-25] MEDS: AMLODIPINE BESYLATE 10 MG TABLET PO SCH (09:42)
[2017-11-25] MEDS: LIOTHYRONINE SODIUM 5 MCG TABLET PO SCH (09:42)
[2017-11-25] MEDS: METOPROLOL TARTRATE 25 MG TABLET PO SCH ×2 (09:43→22:58)
[2017-11-25] MEDS: DOCUSATE SODIUM 100 MG CAPSULE PO SCH ×2 (09:43→17:16)
[2017-11-25] MEDS: FUROSEMIDE 20 MG TABLET PO SCH (09:43)
[2017-11-25] MEDS: ASPIRIN 81 MG TABLET, CHEWABLE PO SCH (09:44)
[2017-11-25] MEDS: POTASSIUM CHLORIDE 10 MEQ CAPSULE.ER PO SCH (09:44)
[2017-11-25 10:26] LABS: APPEARANCE,URINE CLEAR; BILIRUBIN,URINE NEGATIVE (NEGATIVE); COLOR,URINE YELLOW; GLUCOSE, URINE NEGATIVE (NEGATIVE); KETONES,URINE NEGATIVE (NEGATIVE); LEUKOCYTE ESTERASE,URINE NEGATIVE (NEGATIVE); NITRITE,URINE NEGATIVE (NEGATIVE); PROTEIN,URINE 30 mg/dL (NEGATIVE); URINE SPECIFIC GRAVITY 1.016
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
--- NOTE | 2017-11-25 11:27 | PDOC PROGRESS REPORT ---
Subjective Progress Note for:: 11/25/17 Subjective:: Patient seems to be doing better with gradual improvement. However today she is complaining of feeling generally unwell without any specific symptoms. Pt is denying any chest arm or neck discomfort. Patient denying any PND, orthopnea. Patient denied any sustained palpitations, dizziness, syncope, near syncope. Patient denying any fever chills. Patient denying any other significant discomfort. Patient is maintaining sinus rhythm. Review of systems: Rest review of systems negative. Medications: Medications have been reviewed. Reason For Visit: NON-ST ELEVATION (NSTEMI) MYOCARDIAL INFARCTION Physical Exam Vital Signs: Temp Pulse Resp BP Pulse Ox 97.5 F 56 L 16 145/49 H 97 11/25/17 08:27 11/25/17 08:27 11/25/17 08:27 11/25/17 08:27 11/25/17 08:27 Intake & Output 11/24/17 11/25/17 11/26/17 06:59 06:59 06:59 Intake Total 800 2475 Output Total 100 690 Balance 700 1785 Weight 97.1 kg Exam: GENERAL: well-nourished and in no acute distress. Alert and oriented x3 HEAD: Atraumatic, normocephalic. EYES: Pupils equal round and reactive to light, extraocular movements intact, sclera anicteric, conjunctiva are normal. ENT: TMs normal, nares patent, oropharynx clear without exudates. Moist mucous membranes. No oral ulcerations or bleeding gums noted NECK: supple without lymphadenopathy. Trachea is central. No cervical or axillary lymphadenopathy noted. Carotids are 2+, JVD WNL LUNGS: Respiration seems nonlabored, no significant accessory muscle action noted. Breath sounds clear to auscultation bilaterally and equal noted. No wheezes rales or rhonchi noted. No significant dullness noted on percussion. CHEST: Palpation of the chest wall shows no significant chest wall tenderness. HEART: [place] [employer]OLI[employer] AR[employer]ANGER, No PSH, 1-2/6 MATTIE aortic area, 1-2/6 osorio systolic murmur mitral area, no rubs, no gallops. ABDOMEN: Soft, no significant tenderness appreciated, normoactive bowel sounds. No guarding, no rebound. No rigidity noted . No masses appreciated. EXTREMITIES: Pedal pulses are 1-2+, no calf tenderness noted. No clubbing or cyanosis. 1+ pedal edema noted NEUROLOGICAL: Focused neurological exam showed no significant neurologic deficit. Normal speech, no focal weakness appreciated. PSYCH: Normal mood, normal affect. Judgment and insight within normal limits. SKIN: No significant ecchymosis, skin is noted to be warm. MUSCULOSKELETAL EXAM: No significant acute joint swelling noted. Results Laboratory Results: 11/25/17 04:12 11/25/17 04:12 11/25/17 11/25/17 11/25/17 04:12 04:12 10:00 WBC 6.8 RBC 4.79 Hgb 13.6 Hct 40.0 MCV 84 MCH 28.5 MCHC 34.1 RDW 15.0 H Plt Count 202 Sodium 140.4 Potassium 3.8 Chloride 104 Carbon Dioxide 28 Anion Gap 8 BUN 17 Creatinine 1.82 H Est GFR ( Amer) 33 L Est GFR (Non-Af Amer) 27 L Glucose 119 H Calcium 9.1 Magnesium 2.3 Total Bilirubin 0.6 AST 50 H ALT 76 H Alkaline Phosphatase 126 Total Protein 6.4 Albumin 3.5 Urine Color YELLOW Urine Appearance CLEAR Urine pH 6.0 Ur Specific [place] 1.016 Urine Protein 30 H Urine Glucose (UA) NEGATIVE Urine Ketones NEGATIVE Urine Blood NEGATIVE Urine Nitrite NEGATIVE Ur Leukocyte Esterase NEGATIVE Urine WBC (Auto) 2 Urine RBC (Auto) 1 11/21/17 11/21/17 11/21/17 04:25 15:00 15:00 Creatine Kinase 83 CK-MB (CK-2) 1.33 Troponin I 0.063 0.037 EKG Comments: Twelve-lead EKG on chart shows sinus rhythm, LVH with minor nonspecific T-wave inversion Impressions: Hip X-Ray 11/20/17 00:00 IMPRESSION: NEGATIVE STUDY OF THE LEFT HIP AND PELVIS. NO RADIOGRAPHIC EVIDENCE OF ACUTE INJURY. Knee X-Ray 11/20/17 00:00 IMPRESSION: No acute fracture. Osteoarthritis. Chest X-Ray 11/21/17 00:00 IMPRESSION: CARDIAC ENLARGEMENT. VASCULAR CONGESTION. Abdomen/Pelvis CT 11/23/17 00:00 IMPRESSION: 1. COLONIC DIVERTICULOSIS. NO CT FINDINGS OF ACUTE DIVERTICULITIS. 2. ATROPHIC LEFT KIDNEY. 3. NO OTHER SIGNIFICANT OR ACUTE FINDINGS. Assessment & Plan - Diagnosis (1) NSTEMI (non-ST elevated myocardial infarction) Is this a current diagnosis for this admission?: Yes (2) CAD (coronary artery disease) Qualifiers: Coronary Disease-Associated Artery/Lesion type: [place] artery [place] vs. transplanted heart: [place] heart Associated angina: angina presence unspecified Qualified Code(s): I25.10 - Atherosclerotic heart disease of [place] coronary artery without angina pectoris Is this a current diagnosis for this admission?: Yes (3) CHF (congestive heart failure) Qualifiers: Heart failure type: unspecified Heart failure chronicity: chronic Qualified Code(s): I50.9 - Heart failure, unspecified Is this a current diagnosis for this admission?: Yes (4) CKD (chronic kidney disease) Qualifiers: Chronic kidney disease stage: stage 3 (moderate) Qualified Code(s): N18.3 - Chronic kidney disease, stage 3 (moderate) Is this a current diagnosis for this admission?: Yes (5) COPD (chronic obstructive pulmonary disease) Qualifiers: COPD type: unspecified COPD Qualified Code(s): J44.9 - Chronic obstructive pulmonary disease, unspecified Is this a current diagnosis for this admission?: Yes (6) GERD (gastroesophageal reflux disease) Qualifiers: Esophagitis presence: esophagitis presence not specified Qualified Code(s) : K21.9 - Gastro-esophageal reflux disease without esophagitis Is this a current diagnosis for this admission?: Yes (7) HLD (hyperlipidemia) Qualifiers: Hyperlipidemia type: unspecified Qualified Code(s): E78.5 - Hyperlipidemia , unspecified Is this a current diagnosis for this admission?: Yes (8) HTN (hypertension) Qualifiers: Hypertension type: essential hypertension Qualified Code(s): I10 - Essential (primary) hypertension Is this a current diagnosis for this admission?: Yes - Notes Notes: Non-STEMI: Patient ruled in for non-STEMI by way of enzymes. Currently stable. Patient had nonspecific T-wave inversion. For risk stratification will schedule patient for a nuclear stress test. This is preferred in view of significant renal dysfunction. Coronary artery disease: Currently reasonably stable. Will try optimize underlying therapy for CAD. Recommend aspirin, Plavix, statins, beta blockers and good control of other risk factors. CHF: We will order a 2D echo to evaluate this further. Currently stable. CKD: Seems to be stage III by lab data. Monitor renal functions. COPD: Currently stable. Gastroesophageal reflux disease: Recommend proton pump inhibitor. Hyperlipidemia: Continue with high potency statin therapy. Hypertension: Recommend good control of blood pressure. Ideally blood pressure goal should be 135/85 or less in this lady but could be somewhat more difficult due to her advanced age. - Time Time with patient: Greater than 35 minutes - CODE STATUS : was discussed, patient remains DO NOT RESUSCITATE. More than 50% of the time spent coordinating care, discussing management plans with involved caregivers. Management plans discussed with involved personnels. Medical decision making was of moderate to high complexity, patient's has multiple comorbidities. Medications reviewed and adjusted accordingly: Yes
[2017-11-25] MEDS ORDERED: MORPHINE SULFATE 10 MG/ML INJ ONE (14:37)
[2017-11-25] MEDS ORDERED: MORPHINE SULFATE 10 MG/ML INJ IV ONE (15:00)
[2017-11-25] MEDS: ONDANSETRON HCL INJ/PF 4 MG/2 ML SDV IV PRN (17:16)
[2017-11-25] MEDS: ATORVASTATIN CALCIUM 40 MG TABLET PO SCH (22:58)
[2017-11-25] MEDS: ALPRAZOLAM 0.5 MG TABLET PO PRN (22:58)
[2017-11-25] MEDS: PHARMACY COMMUNICATION ORDER MC SCH (22:59)
[2017-11-26 05:19] LABS: ABSOLUTE BASOPHILS # (AUTO) 0.1 10^3/uL (0.0-0.2); ABSOLUTE EOSINOPHILS # (AUTO) 0.2 10^3/uL (0.0-0.6); ABSOLUTE MONOCYTES (AUTO) 0.6 10^3/uL (0.1-1.4); ABSOLUTE NEUT (AUTO) 3.4 10^3/uL (1.7-8.2); BASOPHILS % (AUTO) 0.8 % (0-2); EOSINOPHILS % (AUTO) 3.8 % (0-6); HEMATOCRIT 41.2 % (36.0-47.0); HEMOGLOBIN 14.1 g/dL (12.0-15.5); LYMPHOCYTES % (AUTO) 32.2 % (13-45); MEAN CORPUSCULAR HEMOGLOBIN 28.3 pg (27.0-33.4); MEAN CORPUSCULAR HGB CONC 34.2 g/dL (32.0-36.0); MEAN CORPUSCULAR VOLUME 83 fl (80-97); MONOCYTES % (AUTO) 9.8 % (3-13); PLATELET COUNT 187 10^3/uL (150-450); RED BLOOD COUNT 4.97 10^6/uL (3.72-5.28); RED CELL DISTRIBUTION WIDTH 15.3 % (11.5-14.0); SEGMENTED NEUTROPHILS % (AUTO) 53.4 % (42-78); TOTAL CELLS COUNTED % (AUTO) 100 %; WHITE BLOOD COUNT 6.3 10^3/uL (4.0-10.5)
[2017-11-26 05:44] LABS: ALANINE AMINOTRANSFERASE 61 U/L (9-52); ALBUMIN 3.4 g/dL (3.5-5.0); ALKALINE PHOSPHATASE 138 U/L (38-126); ANION GAP 9 (5-19); ASPARTATE AMINO TRANSFERASE 33 U/L (14-36); BILIRUBIN,DIRECT 0.6 mg/dL (0.0-0.4); BILIRUBIN,TOTAL 0.7 mg/dL (0.2-1.3); BLOOD UREA NITROGEN 18 mg/dL (7-20); CALCIUM 8.9 mg/dL (8.4-10.2); CARBON DIOXIDE 28 mmol/L (22-30); CHLORIDE 102 mmol/L (98-107); GLUCOSE 93 mg/dL (75-110); POTASSIUM 3.7 mmol/L (3.6-5.0); SODIUM 139.2 mmol/L (137-145); TOTAL PROTEIN 6.5 g/dL (6.3-8.2)
[2017-11-26] MEDS: RANOLAZINE 500 MG TAB.SR.12H PO SCH ×2 (05:56→17:46)
[2017-11-26] MEDS: PENTOXIFYLLINE 400 MG TABLET.SA PO SCH ×3 (05:56→22:30)
[2017-11-26] MEDS: GABAPENTIN 300 MG CAPSULE PO SCH ×3 (05:56→21:44)
[2017-11-26] MEDS: LANSOPRAZOLE 30 MG TAB.RAP.DR PO SCH (05:56)
[2017-11-26] MEDS: LEVOTHYROXINE SODIUM 0.1 MG TABLET PO SCH (05:57)
[2017-11-26] MEDS: HYDRALAZINE HCL 50 MG TABLET PO SCH ×3 (05:59→21:44)
[2017-11-26] MEDS ORDERED: MORPHINE SULFATE 10 MG/ML INJ ONE (08:02)
--- NOTE | 2017-11-26 10:07 | RADIOLOGY REPORT (SQ) ---
EXAM DESCRIPTION: VENOUS UNILATERAL LOWER COMPLETED DATE/TIME: 11/25/2017 3:01 pm REASON FOR STUDY: LLE pain and swelling COMPARISON: None. TECHNIQUE: Dynamic and static vera scale and color images acquired of the left leg venous system. Se lected spectral images acquired with additional compression and augmentation maneuvers. The contralat eral common femoral vein and saphenofemoral junction were also imaged. Images stored on PACS. LIMITATIONS: None. FINDINGS: LEFT COMMON FEMORAL: Normal phasicity, compression and augmentation. No visualized echogenic material on g ray scale. No defects on color images. FEMORAL: Normal compression and augmentation. No visualized echogenic material on vera scale. No defe cts on color images. POPLITEAL: Normal compression, augmentation. No visualized echogenic material on vera scale. No defec ts on color images. CALF VESSELS: Normal compression, augmentation. No visualized echogenic material on vera scale. No de fects on color images. GSV and SSV: Normal compression, augmentation. No visualized echogenic material on vera scale. No def ects on color images. ANY DEEP VENOUS INSUFFICIENCY: Not evaluated. ANY EVIDENCE OF POPLITEAL CYST: No. OTHER: No other significant finding. RIGHT COMMON FEMORAL VEIN AND SAPHENOFEMORAL JUNCTION: Normal phasicity, compression and augmentation. No visualized echogenic material on vera scale. No de fects on color images. IMPRESSION: NO EVIDENCE OF DVT OR SVT IN THE LEFT LEG. TECHNICAL DOCUMENTATION: JOB ID: [id number] [employer]- All Rights Reserved Reading location - IP/workstation name: [email or web address]
[2017-11-26] MEDS: ASPIRIN 81 MG TABLET, CHEWABLE PO SCH (10:37)
[2017-11-26] MEDS: POTASSIUM CHLORIDE 10 MEQ CAPSULE.ER PO SCH (10:37)
[2017-11-26] MEDS: DOCUSATE SODIUM 100 MG CAPSULE PO SCH ×2 (10:37→17:46)
[2017-11-26] MEDS: AMLODIPINE BESYLATE 10 MG TABLET PO SCH (10:37)
[2017-11-26] MEDS: LIDOCAINE 5% (700 MG) TRANSDERMAL ADH..PATCH TP SCH (10:37)
[2017-11-26] MEDS: ISOSORBIDE MONONITRATE 60 MG TAB.ER.24H PO SCH (10:38)
[2017-11-26] MEDS: METOPROLOL TARTRATE 25 MG TABLET PO SCH ×2 (10:38→21:45)
[2017-11-26] MEDS: TICAGRELOR 90 MG TABLET PO SCH ×2 (10:38→17:46)
[2017-11-26] MEDS: LIOTHYRONINE SODIUM 5 MCG TABLET PO SCH (10:39)
[2017-11-26] MEDS: ENOXAPARIN SODIUM INJ 40 MG/0.4 ML DISP.SYRIN SUBCUT SCH (10:41)
[2017-11-26] MEDS: ALPRAZOLAM 0.5 MG TABLET PO PRN ×2 (10:48→21:45)
--- NOTE | 2017-11-26 11:43 | PDOC PROGRESS REPORT ---
Subjective Progress Note for:: 11/26/17 Subjective:: Patient continues to complain of diarrhea and some nausea. However today she is complaining of feeling generally unwell without any specific symptoms. Pt is denying any chest arm or neck discomfort. Patient denying any PND, orthopnea. Patient denied any sustained palpitations, dizziness, syncope, near syncope. Patient denying any fever chills. Patient denying any other significant discomfort. Patient is maintaining sinus rhythm. Review of systems: Rest review of systems negative. Medications: Medications have been reviewed. Reason For Visit: NON-ST ELEVATION (NSTEMI) MYOCARDIAL INFARCTION Physical Exam Vital Signs: Temp Pulse Resp BP Pulse Ox 97.7 F 53 L 20 132/53 H 99 11/26/17 11:12 11/26/17 11:12 11/26/17 11:12 11/26/17 11:12 11/26/17 11:12 Intake & Output 11/25/17 11/26/17 11/27/17 06:59 06:59 06:59 Intake Total 2475 1015 240 Output Total 690 300 200 Balance 1785 715 40 Weight 97.1 kg 97.9 kg Exam: GENERAL: well-nourished and in no acute distress. Alert and oriented x3 HEAD: Atraumatic, normocephalic. EYES: Pupils equal round and reactive to light, extraocular movements intact, sclera anicteric, conjunctiva are normal. ENT: TMs normal, nares patent, oropharynx clear without exudates. Moist mucous membranes. No oral ulcerations or bleeding gums noted NECK: supple without lymphadenopathy. Trachea is central. No cervical or axillary lymphadenopathy noted. Carotids are 2+, JVD WNL LUNGS: Respiration seems nonlabored, no significant accessory muscle action noted. Breath sounds clear to auscultation bilaterally and equal noted. No wheezes rales or rhonchi noted. No significant dullness noted on percussion. CHEST: Palpation of the chest wall shows no significant chest wall tenderness. 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 ABDOMEN: Soft, no significant tenderness appreciated, normoactive bowel sounds. No guarding, no rebound. No rigidity noted . No masses appreciated. EXTREMITIES: Pedal pulses are 1-2+, no calf tenderness noted. No clubbing or cyanosis. 1+ pedal edema noted NEUROLOGICAL: Focused neurological exam showed no significant neurologic deficit. Normal speech, no focal weakness appreciated. PSYCH: Normal mood, normal affect. Judgment and insight within normal limits. SKIN: No significant ecchymosis, skin is noted to be warm. MUSCULOSKELETAL EXAM: No significant acute joint swelling noted. Results Laboratory Results: 11/26/17 04:49 11/26/17 04:49 11/26/17 11/26/17 04:49 04:49 WBC 6.3 RBC 4.97 Hgb 14.1 Hct 41.2 MCV 83 MCH 28.3 MCHC 34.2 RDW 15.3 H Plt Count 187 Seg Neutrophils % 53.4 Lymphocytes % 32.2 Monocytes % 9.8 Eosinophils % 3.8 Basophils % 0.8 Absolute Neutrophils 3.4 Absolute Lymphocytes 2.0 Absolute Monocytes 0.6 Absolute Eosinophils 0.2 Absolute Basophils 0.1 Sodium 139.2 Potassium 3.7 Chloride 102 Carbon Dioxide 28 Anion Gap 9 BUN 18 Creatinine 1.50 H Est GFR ( Amer) 41 L Est GFR (Non-Af Amer) 34 L Glucose 93 Calcium 8.9 Total Bilirubin 0.7 AST 33 ALT 61 H Alkaline Phosphatase 138 H Total Protein 6.5 Albumin 3.4 L 11/21/17 11/21/17 11/21/17 04:25 15:00 15:00 Creatine Kinase 83 CK-MB (CK-2) 1.33 Troponin I 0.063 0.037 EKG Comments: Shows sinus rhythm without any sustained tachycardia or bradycardia Impressions: Hip X-Ray 11/20/17 00:00 IMPRESSION: NEGATIVE STUDY OF THE LEFT HIP AND PELVIS. NO RADIOGRAPHIC EVIDENCE OF ACUTE INJURY. Knee X-Ray 11/20/17 00:00 IMPRESSION: No acute fracture. Osteoarthritis. Chest X-Ray 11/21/17 00:00 IMPRESSION: CARDIAC ENLARGEMENT. VASCULAR CONGESTION. Abdomen/Pelvis CT 11/23/17 00:00 IMPRESSION: 1. COLONIC DIVERTICULOSIS. NO CT FINDINGS OF ACUTE DIVERTICULITIS. 2. ATROPHIC LEFT KIDNEY. 3. NO OTHER SIGNIFICANT OR ACUTE FINDINGS. Venous Doppler Study 11/25/17 10:58 IMPRESSION: NO EVIDENCE OF DVT OR SVT IN THE LEFT LEG. Assessment & Plan - Diagnosis (1) NSTEMI (non-ST elevated myocardial infarction) Is this a current diagnosis for this admission?: Yes (2) CAD (coronary artery disease) Qualifiers: Coronary Disease-Associated Artery/Lesion type: [place] artery [place] vs. transplanted heart: [place] heart Associated angina: angina presence unspecified Qualified Code(s): I25.10 - Atherosclerotic heart disease of [place] coronary artery without angina pectoris Is this a current diagnosis for this admission?: Yes (3) CHF (congestive heart failure) Qualifiers: Heart failure type: unspecified Heart failure chronicity: chronic Qualified Code(s): I50.9 - Heart failure, unspecified Is this a current diagnosis for this admission?: Yes (4) CKD (chronic kidney disease) Qualifiers: Chronic kidney disease stage: stage 3 (moderate) Qualified Code(s): N18.3 - Chronic kidney disease, stage 3 (moderate) Is this a current diagnosis for this admission?: Yes (5) COPD (chronic obstructive pulmonary disease) Qualifiers: COPD type: unspecified COPD Qualified Code(s): J44.9 - Chronic obstructive pulmonary disease, unspecified Is this a current diagnosis for this admission?: Yes (6) GERD (gastroesophageal reflux disease) Qualifiers: Esophagitis presence: esophagitis presence not specified Qualified Code(s) : K21.9 - Gastro-esophageal reflux disease without esophagitis Is this a current diagnosis for this admission?: Yes (7) HLD (hyperlipidemia) Qualifiers: Hyperlipidemia type: unspecified Qualified Code(s): E78.5 - Hyperlipidemia , unspecified Is this a current diagnosis for this admission?: Yes (8) HTN (hypertension) Qualifiers: Hypertension type: essential hypertension Qualified Code(s): I10 - Essential (primary) hypertension Is this a current diagnosis for this admission?: Yes - Notes Notes: Patient's medical regimen reviewed. Patient already on Ranexa. Could increase it to 2000 mg per day. Non-STEMI: Patient ruled in for non-STEMI by way of enzymes. Currently stable. Patient had nonspecific T-wave inversion. For risk stratification will schedule patient for a nuclear stress test. This is preferred in view of significant renal dysfunction. In the meantime will optimize medical management. Will add Ranexa if patient not already on it. Coronary artery disease: Currently reasonably stable. Will try optimize underlying therapy for CAD. Recommend aspirin, Plavix, statins, beta blockers and good control of other risk factors. CHF: 2D echo performed earlier this admission was reviewed and is noted to show normal LVEF. 2D echo however was technically difficult.. Currently stable. CKD: Seems to be stage III by lab data. Monitor renal functions. COPD: Currently stable. Gastroesophageal reflux disease: Recommend proton pump inhibitor. Hyperlipidemia: Continue with high potency statin therapy. Hypertension: Recommend good control of blood pressure. Ideally blood pressure goal should be 135/85 or less in this lady but could be somewhat more difficult due to her advanced age. - Time Time with patient: Greater than 35 minutes - CODE STATUS : was discussed, patient remains DO NOT RESUSCITATE. Surrogate decision-maker unchanged. Multiple medical problems were addressed. More than 50% of the time spent coordinating care, discussing management plans with involved caregivers. Management plans discussed with involved personnels. Medical decision making was of moderate to high complexity, patient's has multiple comorbidities. Medications reviewed and adjusted accordingly: Yes
[2017-11-26] MEDS: PROMETHAZINE HCL INJ 25 MG/1 ML VIAL IV PRN (12:40)
--- NOTE | 2017-11-26 17:44 | PDOC PROGRESS REPORT ---
Subjective Progress Note for:: 11/26/17 Subjective:: No adverse events overnight. No new complaints. No chest pain or shortness of breath. She still has some left leg swelling which she said it does not hurt Much at all. Reason For Visit: NON-ST ELEVATION (NSTEMI) MYOCARDIAL INFARCTION Physical Exam Vital Signs: Temp Pulse Resp BP Pulse Ox 97.9 F 54 L 18 128/48 H 96 11/26/17 15:58 11/26/17 15:58 11/26/17 15:58 11/26/17 15:58 11/26/17 15:58 Intake & Output 11/25/17 11/26/17 11/27/17 06:59 06:59 06:59 Intake Total 2475 1015 720 Output Total 690 300 200 Balance 1785 715 520 Weight 97.1 kg 97.9 kg General appearance: PRESENT: no acute distress, cooperative, disheveled, morbidly obese Respiratory exam: PRESENT: clear to auscultation evita, symmetrical, unlabored. ABSENT: accessory muscle use, crackles, prolonged expiratory phas, rales, retraction, rhonchi, stridor, tachypnea, wheezes Cardiovascular exam: PRESENT: RRR, +S1, +S2. ABSENT: diastolic murmur, systolic murmur GI/Abdominal exam: PRESENT: normal bowel sounds, soft. ABSENT: guarding, rebound, tenderness Extremities exam: PRESENT: +2 edema - Left lower extremity. ABSENT: clubbing, joint swelling Musculoskeletal exam: ABSENT: deformity, tenderness Neurological exam: PRESENT: alert, awake, oriented to person, oriented to place , oriented to time Psychiatric exam: PRESENT: appropriate affect, normal mood Skin exam: PRESENT: dry, warm Results Laboratory Results: 11/26/17 04:49 11/26/17 04:49 11/26/17 11/26/17 04:49 04:49 WBC 6.3 RBC 4.97 Hgb 14.1 Hct 41.2 MCV 83 MCH 28.3 MCHC 34.2 RDW 15.3 H Plt Count 187 Seg Neutrophils % 53.4 Lymphocytes % 32.2 Monocytes % 9.8 Eosinophils % 3.8 Basophils % 0.8 Absolute Neutrophils 3.4 Absolute Lymphocytes 2.0 Absolute Monocytes 0.6 Absolute Eosinophils 0.2 Absolute Basophils 0.1 Sodium 139.2 Potassium 3.7 Chloride 102 Carbon Dioxide 28 Anion Gap 9 BUN 18 Creatinine 1.50 H Est GFR ( Amer) 41 L Est GFR (Non-Af Amer) 34 L Glucose 93 Calcium 8.9 Total Bilirubin 0.7 AST 33 ALT 61 H Alkaline Phosphatase 138 H Total Protein 6.5 Albumin 3.4 L 11/21/17 11/21/17 11/21/17 04:25 15:00 15:00 Creatine Kinase 83 CK-MB (CK-2) 1.33 Troponin I 0.063 0.037 Impressions: Hip X-Ray 11/20/17 00:00 IMPRESSION: NEGATIVE STUDY OF THE LEFT HIP AND PELVIS. NO RADIOGRAPHIC EVIDENCE OF ACUTE INJURY. Knee X-Ray 11/20/17 00:00 IMPRESSION: No acute fracture. Osteoarthritis. Chest X-Ray 11/21/17 00:00 IMPRESSION: CARDIAC ENLARGEMENT. VASCULAR CONGESTION. Abdomen/Pelvis CT 11/23/17 00:00 IMPRESSION: 1. COLONIC DIVERTICULOSIS. NO CT FINDINGS OF ACUTE DIVERTICULITIS. 2. ATROPHIC LEFT KIDNEY. 3. NO OTHER SIGNIFICANT OR ACUTE FINDINGS. Venous Doppler Study 11/25/17 10:58 IMPRESSION: NO EVIDENCE OF DVT OR SVT IN THE LEFT LEG. Assessment & Plan - Diagnosis (1) NSTEMI (non-ST elevated myocardial infarction) Is this a current diagnosis for this admission?: Yes Plan: Cardiology consultation. Echocardiogram was very poor quality. Nuclear stress test tomorrow. Ultrasound of left leg was negative for DVT. - Time Time Spent with patient: 25-34 minutes
[2017-11-26] MEDS: ATORVASTATIN CALCIUM 40 MG TABLET PO SCH (21:44)
[2017-11-26] MEDS: PHARMACY COMMUNICATION ORDER MC SCH (21:50)
[2017-11-27 05:45] LABS: HEMATOCRIT 42.1 % (36.0-47.0); HEMOGLOBIN 14.3 g/dL (12.0-15.5); MEAN CORPUSCULAR HEMOGLOBIN 28.1 pg (27.0-33.4); MEAN CORPUSCULAR VOLUME 83 fl (80-97); PLATELET COUNT 190 10^3/uL (150-450); RED BLOOD COUNT 5.09 10^6/uL (3.72-5.28); WHITE BLOOD COUNT 6.2 10^3/uL (4.0-10.5)
[2017-11-27] MEDS: HYDRALAZINE HCL 50 MG TABLET PO SCH ×3 (06:12→21:45)
[2017-11-27] MEDS: LEVOTHYROXINE SODIUM 0.1 MG TABLET PO SCH (06:12)
[2017-11-27] MEDS: PENTOXIFYLLINE 400 MG TABLET.SA PO SCH ×3 (06:12→21:44)
[2017-11-27] MEDS: GABAPENTIN 300 MG CAPSULE PO SCH ×3 (06:12→21:45)
[2017-11-27] MEDS: LANSOPRAZOLE 30 MG TAB.RAP.DR PO SCH (06:13)
[2017-11-27] MEDS: RANOLAZINE 500 MG TAB.SR.12H PO SCH ×2 (06:17→18:25)
[2017-11-27] MEDS: OXYCODONE HCL IR 5 MG TABLET PO PRN ×3 (07:23→23:27)
[2017-11-27] MEDS: ISOSORBIDE MONONITRATE 60 MG TAB.ER.24H PO SCH (11:28)
[2017-11-27] MEDS: DOCUSATE SODIUM 100 MG CAPSULE PO SCH ×2 (11:29→18:25)
[2017-11-27] MEDS: AMLODIPINE BESYLATE 10 MG TABLET PO SCH (11:29)
[2017-11-27] MEDS: ASPIRIN 81 MG TABLET, CHEWABLE PO SCH (11:29)
[2017-11-27] MEDS: FUROSEMIDE 20 MG TABLET PO SCH (11:29)
[2017-11-27] MEDS: METOPROLOL TARTRATE 25 MG TABLET PO SCH ×2 (11:30→21:46)
[2017-11-27] MEDS: POTASSIUM CHLORIDE 10 MEQ CAPSULE.ER PO SCH (11:30)
[2017-11-27] MEDS: TICAGRELOR 90 MG TABLET PO SCH ×2 (11:31→18:25)
[2017-11-27] MEDS: LIDOCAINE 5% (700 MG) TRANSDERMAL ADH..PATCH TP SCH (11:32)
[2017-11-27] MEDS: ENOXAPARIN SODIUM INJ 40 MG/0.4 ML DISP.SYRIN SUBCUT SCH (11:34)
[2017-11-27] MEDS: LIOTHYRONINE SODIUM 5 MCG TABLET PO SCH (14:04)
[2017-11-27] MEDS: ALPRAZOLAM 0.5 MG TABLET PO PRN (16:50)
[2017-11-27] MEDS ORDERED: IBUPROFEN 600 MG TABLET PO PRN (18:03)
[2017-11-27] MEDS: ATORVASTATIN CALCIUM 40 MG TABLET PO SCH (21:45)
[2017-11-27] MEDS: PHARMACY COMMUNICATION ORDER MC SCH (21:51)
[2017-11-28] MEDS: PENTOXIFYLLINE 400 MG TABLET.SA PO SCH ×3 (06:18→21:20)
[2017-11-28] MEDS: GABAPENTIN 300 MG CAPSULE PO SCH ×3 (06:19→21:20)
[2017-11-28] MEDS: LANSOPRAZOLE 30 MG TAB.RAP.DR PO SCH (06:19)
[2017-11-28] MEDS: LEVOTHYROXINE SODIUM 0.1 MG TABLET PO SCH (06:19)
[2017-11-28] MEDS: RANOLAZINE 500 MG TAB.SR.12H PO SCH ×2 (06:19→17:27)
[2017-11-28] MEDS: HYDRALAZINE HCL 50 MG TABLET PO SCH ×3 (06:20→21:20)
[2017-11-28] MEDS: OXYCODONE HCL IR 5 MG TABLET PO PRN (07:55)
[2017-11-28] MEDS: ASPIRIN 81 MG TABLET, CHEWABLE PO SCH (10:32)
[2017-11-28] MEDS: TICAGRELOR 90 MG TABLET PO SCH ×2 (10:32→17:27)
[2017-11-28] MEDS: POTASSIUM CHLORIDE 10 MEQ CAPSULE.ER PO SCH (10:32)
[2017-11-28] MEDS: METOPROLOL TARTRATE 25 MG TABLET PO SCH ×2 (10:32→21:20)
[2017-11-28] MEDS: ALPRAZOLAM 0.5 MG TABLET PO PRN ×2 (10:32→23:40)
[2017-11-28] MEDS: AMLODIPINE BESYLATE 10 MG TABLET PO SCH (10:32)
[2017-11-28] MEDS: LIDOCAINE 5% (700 MG) TRANSDERMAL ADH..PATCH TP SCH (10:33)
[2017-11-28] MEDS: ENOXAPARIN SODIUM INJ 40 MG/0.4 ML DISP.SYRIN SUBCUT SCH (10:33)
[2017-11-28] MEDS: DOCUSATE SODIUM 100 MG CAPSULE PO SCH ×2 (10:33→17:27)
[2017-11-28] MEDS: LIOTHYRONINE SODIUM 5 MCG TABLET PO SCH (10:33)
[2017-11-28] MEDS: ISOSORBIDE MONONITRATE 60 MG TAB.ER.24H PO SCH (10:33)
--- NOTE | 2017-11-28 11:54 | PDOC PROGRESS REPORT ---
Subjective Progress Note for:: 11/27/17 Subjective:: Patient continues to complain of diarrhea and some nausea. However today she is complaining of feeling generally unwell without any specific symptoms. Pt is denying any chest arm or neck discomfort. Patient denying any PND, orthopnea. Patient denied any sustained palpitations, dizziness, syncope, near syncope. Patient denying any fever chills. Patient denying any other significant discomfort. Patient is maintaining sinus rhythm. Review of systems: Rest review of systems negative. Medications: Medications have been reviewed. Reason For Visit: NON-ST ELEVATION (NSTEMI) MYOCARDIAL INFARCTION Physical Exam Vital Signs: Temp Pulse Resp BP Pulse Ox 98.3 F 68 20 133/54 H 97 11/27/17 15:37 11/27/17 19:00 11/27/17 15:37 11/27/17 15:37 11/27/17 15:37 Intake & Output 11/26/17 11/27/17 11/28/17 06:59 06:59 06:59 Intake Total 1015 1197 720 Output Total 875 113 5238 Balance 715 497 -780 Weight 97.9 kg 97.4 kg Exam: GENERAL: well-nourished and in no acute distress. Alert and oriented x3 HEAD: Atraumatic, normocephalic. EYES: Pupils equal round and reactive to light, extraocular movements intact, sclera anicteric, conjunctiva are normal. ENT: TMs normal, nares patent, oropharynx clear without exudates. Moist mucous membranes. No oral ulcerations or bleeding gums noted NECK: supple without lymphadenopathy. Trachea is central. No cervical or axillary lymphadenopathy noted. Carotids are 2+, JVD WNL LUNGS: Respiration seems nonlabored, no significant accessory muscle action noted. Breath sounds clear to auscultation bilaterally and equal noted. No wheezes rales or rhonchi noted. No significant dullness noted on percussion. CHEST: Palpation of the chest wall shows no significant chest wall tenderness. 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 ABDOMEN: Soft, no significant tenderness appreciated, normoactive bowel sounds. No guarding, no rebound. No rigidity noted . No masses appreciated. EXTREMITIES: Pedal pulses are 1-2+, no calf tenderness noted. No clubbing or cyanosis. 1+ pedal edema noted NEUROLOGICAL: Focused neurological exam showed no significant neurologic deficit. Normal speech, no focal weakness appreciated. PSYCH: Normal mood, normal affect. Judgment and insight within normal limits. SKIN: No significant ecchymosis, skin is noted to be warm. MUSCULOSKELETAL EXAM: No significant acute joint swelling noted. Results Laboratory Results: 11/27/17 04:47 11/26/17 04:49 11/27/17 04:47 WBC 6.2 RBC 5.09 Hgb 14.3 Hct 42.1 MCV 83 MCH 28.1 MCHC 34.0 RDW 15.0 H Plt Count 190 11/21/17 11/21/17 11/21/17 04:25 15:00 15:00 Creatine Kinase 83 CK-MB (CK-2) 1.33 Troponin I 0.063 0.037 EKG Comments: Telemetry strips reviewed. No sustained tachycardia or bradycardia arrhythmia noted Impressions: Hip X-Ray 11/20/17 00:00 IMPRESSION: NEGATIVE STUDY OF THE LEFT HIP AND PELVIS. NO RADIOGRAPHIC EVIDENCE OF ACUTE INJURY. Knee X-Ray 11/20/17 00:00 IMPRESSION: No acute fracture. Osteoarthritis. Chest X-Ray 11/21/17 00:00 IMPRESSION: CARDIAC ENLARGEMENT. VASCULAR CONGESTION. Abdomen/Pelvis CT 11/23/17 00:00 IMPRESSION: 1. COLONIC DIVERTICULOSIS. NO CT FINDINGS OF ACUTE DIVERTICULITIS. 2. ATROPHIC LEFT KIDNEY. 3. NO OTHER SIGNIFICANT OR ACUTE FINDINGS. Venous Doppler Study 11/25/17 10:58 IMPRESSION: NO EVIDENCE OF DVT OR SVT IN THE LEFT LEG. Assessment & Plan - Diagnosis (1) NSTEMI (non-ST elevated myocardial infarction) Is this a current diagnosis for this admission?: Yes (2) CAD (coronary artery disease) Qualifiers: Coronary Disease-Associated Artery/Lesion type: [place] artery [place] vs. transplanted heart: [place] heart Associated angina: angina presence unspecified Qualified Code(s): I25.10 - Atherosclerotic heart disease of [place] coronary artery without angina pectoris Is this a current diagnosis for this admission?: Yes (3) CHF (congestive heart failure) Qualifiers: Heart failure type: unspecified Heart failure chronicity: chronic Qualified Code(s): I50.9 - Heart failure, unspecified Is this a current diagnosis for this admission?: Yes (4) CKD (chronic kidney disease) Qualifiers: Chronic kidney disease stage: stage 3 (moderate) Qualified Code(s): N18.3 - Chronic kidney disease, stage 3 (moderate) Is this a current diagnosis for this admission?: Yes (5) COPD (chronic obstructive pulmonary disease) Qualifiers: COPD type: unspecified COPD Qualified Code(s): J44.9 - Chronic obstructive pulmonary disease, unspecified Is this a current diagnosis for this admission?: Yes (6) GERD (gastroesophageal reflux disease) Qualifiers: Esophagitis presence: esophagitis presence not specified Qualified Code(s) : K21.9 - Gastro-esophageal reflux disease without esophagitis Is this a current diagnosis for this admission?: Yes (7) HLD (hyperlipidemia) Qualifiers: Hyperlipidemia type: unspecified Qualified Code(s): E78.5 - Hyperlipidemia , unspecified Is this a current diagnosis for this admission?: Yes (8) HTN (hypertension) Qualifiers: Hypertension type: essential hypertension Qualified Code(s): I10 - Essential (primary) hypertension Is this a current diagnosis for this admission?: Yes - Notes Notes: Patient's medical regimen reviewed. Patient already on Ranexa. Could increase it to 2000 mg per day. Patient went down for a stress test but could not be completed because of equipment failure. Non-STEMI: Patient ruled in for non-STEMI by way of enzymes. Currently stable. Patient had nonspecific T-wave inversion. For risk stratification will schedule patient for a nuclear stress test. This is preferred in view of significant renal dysfunction. In the meantime will optimize medical management. Currently symptoms well controlled on current medical regimen. Coronary artery disease: Currently reasonably stable. Will try optimize underlying therapy for CAD. Recommend aspirin, Plavix, statins, beta blockers and good control of other risk factors. CHF: 2D echo performed earlier this admission was reviewed and is noted to show normal LVEF. 2D echo however was technically difficult.. Currently stable. CKD: Seems to be stage III by lab data. Monitor renal functions. COPD: Currently stable. Gastroesophageal reflux disease: Recommend proton pump inhibitor. Hyperlipidemia: Continue with high potency statin therapy. Hypertension: Recommend good control of blood pressure. Ideally blood pressure goal should be 135/85 or less in this lady but could be somewhat more difficult due to her advanced age. - Time Time with patient: Greater than 35 minutes - CODE STATUS was discussed, patient remains full code. Surrogate decision-maker unchanged. Multiple medical problems were addressed. More than 50% of the time spent coordinating care, discussing management plans with involved caregivers. Management plans discussed with involved personnels. Medical decision making was of moderate to high complexity, patient's has multiple comorbidities. Medications reviewed and adjusted accordingly: Yes
--- NOTE | 2017-11-28 11:57 | PDOC PROGRESS REPORT ---
Subjective Progress Note for:: 11/28/17 Subjective:: Patient claims that she is feeling much improved today. She claims that she has ambulated today. Pt is denying any chest arm or neck discomfort. Patient denying any PND, orthopnea. Patient denied any sustained palpitations, dizziness, syncope, near syncope. Patient denying any fever chills. Patient denying any other significant discomfort. Patient is maintaining sinus rhythm. Review of systems: Rest review of systems negative. Medications: Medications have been reviewed. Reason For Visit: NON-ST ELEVATION (NSTEMI) MYOCARDIAL INFARCTION Physical Exam Vital Signs: Temp Pulse Resp BP Pulse Ox 98.2 F 66 16 175/61 H 94 11/28/17 07:41 11/28/17 07:41 11/28/17 07:41 11/28/17 07:41 11/28/17 07:41 Intake & Output 11/27/17 11/28/17 11/29/17 06:59 06:59 06:59 Intake Total 1197 1320 Output Total 700 2050 Balance 497 -730 Weight 97.4 kg 97.5 kg Exam: GENERAL: well-nourished and in no acute distress. Alert and oriented x3 HEAD: Atraumatic, normocephalic. EYES: Pupils equal round and reactive to light, extraocular movements intact, sclera anicteric, conjunctiva are normal. ENT: TMs normal, nares patent, oropharynx clear without exudates. Moist mucous membranes. No oral ulcerations or bleeding gums noted NECK: supple without lymphadenopathy. Trachea is central. No cervical or axillary lymphadenopathy noted. Carotids are 2+, JVD WNL LUNGS: Respiration seems nonlabored, no significant accessory muscle action noted. Breath sounds clear to auscultation bilaterally and equal noted. No wheezes rales or rhonchi noted. No significant dullness noted on percussion. CHEST: Palpation of the chest wall shows no significant chest wall tenderness. HEART: [place] [employer], No PSH, 1/6 MATTIE aortic area, 1/6 osorio systolic murmur mitral area, no rubs, no gallops. ABDOMEN: Soft, no significant tenderness appreciated, normoactive bowel sounds. No guarding, no rebound. No rigidity noted . No masses appreciated. EXTREMITIES: Pedal pulses are 1-2+, no calf tenderness noted. No clubbing or cyanosis. 1+ pedal edema noted NEUROLOGICAL: Focused neurological exam showed no significant neurologic deficit. Normal speech, no focal weakness appreciated. PSYCH: Normal mood, normal affect. Judgment and insight within normal limits. SKIN: No significant ecchymosis, skin is noted to be warm. MUSCULOSKELETAL EXAM: No significant acute joint swelling noted. Results Laboratory Results: 11/27/17 04:47 11/26/17 04:49 11/21/17 11/21/17 11/21/17 04:25 15:00 15:00 Creatine Kinase 83 CK-MB (CK-2) 1.33 Troponin I 0.063 0.037 EKG Comments: Telemetry strip shows no sustained tachycardia or bradycardia Impressions: Hip X-Ray 11/20/17 00:00 IMPRESSION: NEGATIVE STUDY OF THE LEFT HIP AND PELVIS. NO RADIOGRAPHIC EVIDENCE OF ACUTE INJURY. Knee X-Ray 11/20/17 00:00 IMPRESSION: No acute fracture. Osteoarthritis. Chest X-Ray 11/21/17 00:00 IMPRESSION: CARDIAC ENLARGEMENT. VASCULAR CONGESTION. Abdomen/Pelvis CT 11/23/17 00:00 IMPRESSION: 1. COLONIC DIVERTICULOSIS. NO CT FINDINGS OF ACUTE DIVERTICULITIS. 2. ATROPHIC LEFT KIDNEY. 3. NO OTHER SIGNIFICANT OR ACUTE FINDINGS. Venous Doppler Study 11/25/17 10:58 IMPRESSION: NO EVIDENCE OF DVT OR SVT IN THE LEFT LEG. Assessment & Plan - Diagnosis (1) NSTEMI (non-ST elevated myocardial infarction) Is this a current diagnosis for this admission?: Yes (2) CAD (coronary artery disease) Qualifiers: Coronary Disease-Associated Artery/Lesion type: [place] artery [place] vs. transplanted heart: [place] heart Associated angina: angina presence unspecified Qualified Code(s): I25.10 - Atherosclerotic heart disease of [place] coronary artery without angina pectoris Is this a current diagnosis for this admission?: Yes (3) CHF (congestive heart failure) Qualifiers: Heart failure type: unspecified Heart failure chronicity: chronic Qualified Code(s): I50.9 - Heart failure, unspecified Is this a current diagnosis for this admission?: Yes (4) CKD (chronic kidney disease) Qualifiers: Chronic kidney disease stage: stage 3 (moderate) Qualified Code(s): N18.3 - Chronic kidney disease, stage 3 (moderate) Is this a current diagnosis for this admission?: Yes (5) COPD (chronic obstructive pulmonary disease) Qualifiers: COPD type: unspecified COPD Qualified Code(s): J44.9 - Chronic obstructive pulmonary disease, unspecified Is this a current diagnosis for this admission?: Yes (6) GERD (gastroesophageal reflux disease) Qualifiers: Esophagitis presence: esophagitis presence not specified Qualified Code(s) : K21.9 - Gastro-esophageal reflux disease without esophagitis Is this a current diagnosis for this admission?: Yes (7) HLD (hyperlipidemia) Qualifiers: Hyperlipidemia type: unspecified Qualified Code(s): E78.5 - Hyperlipidemia , unspecified Is this a current diagnosis for this admission?: Yes (8) HTN (hypertension) Qualifiers: Hypertension type: essential hypertension Qualified Code(s): I10 - Essential (primary) hypertension Is this a current diagnosis for this admission?: Yes - Notes Notes: Patient's medical regimen reviewed. Patient already on Ranexa. Could increase it to 2000 mg per day if needed. Patient now no longer wishes to pursue a stress test as an inpatient. She tells me that she has an appointment set up with Dr. Watson from [facility], with the office in [place]. She does describe history of sleep apnea which she claims needs to be treated better and would like to follow-up with me for that condition. Feel that if patient does find on ambulation, she could be discharged on current regimen, with follow-up scheduled. Non-STEMI: Patient ruled in for non-STEMI by way of enzymes. Currently stable. Patient had nonspecific T-wave inversion. Feel that stress test can now be scheduled as an outpatient as patient has been stable from cardiac standpoint. This is preferred in view of significant renal dysfunction. In the meantime will optimize medical management. Will add Ranexa if patient not already on it. Coronary artery disease: Currently reasonably stable. Will try optimize underlying therapy for CAD. Recommend aspirin, Plavix, statins, beta blockers and good control of other risk factors. CHF: 2D echo performed earlier this admission was reviewed and is noted to show normal LVEF. 2D echo however was technically difficult.. Currently stable. CKD: Seems to be stage III by lab data. Monitor renal functions. COPD: Currently stable. Gastroesophageal reflux disease: Recommend proton pump inhibitor. Hyperlipidemia: Continue with high potency statin therapy. Hypertension: Recommend good control of blood pressure. Ideally blood pressure goal should be 135/85 or less in this lady but could be somewhat more difficult due to her advanced age. - Time Time with patient: Greater than 35 minutes - CODE STATUS was discussed, patient remains full code. More than 50% of the time spent coordinating care, discussing management plans with involved caregivers. Management plans discussed with involved personnels. Medical decision making was of moderate to high complexity, patient's has multiple comorbidities. Medications reviewed and adjusted accordingly: Yes
--- NOTE | 2017-11-28 15:38 | DRAGON STRESS TEST REPORT ---
INTRAVENOUS LEXISCAN CARDIOLITE STRESS TEST USING SINGLE PHOTON EMMISION COMPUTERIZED TOMOGRAPHIC. DATE OF PROCEDURE: November 27, 2017, INDICATION : Chest pain NUCLEAR DATA: At rest the patient was given 14.78 millicuries of technetium 99 sestamibi injected intravenously. Rest imaging was performed. Because of subsequent interpretable nature of the nuclear images, stress imaging was not performed and no attempts were made for any nuclear interpretation. NUCLEAR INTERPRETATION: Due to camera/equipment failure/technical errors, nuclear images were nondiagnostic and no interpretation can be given. RECOMMENDATIONS: May consider repeating the stress test if clinically indicated. May also consider alternative testing based on clinical judgment. Dr. Vianney Mohamud. MRCP Board certified in cardiology and sleep medicine. Board certified in nuclear cardiology, adult echocardiography. SHAKIR
[2017-11-28] MEDS ORDERED: MORPHINE SULFATE 10 MG/ML INJ IV PRN (16:06)
[2017-11-28] MEDS: POLYETHYLENE GLYCOL 3350 POWDER 17 GM/1 PACKET PO SCH (17:27)
--- NOTE | 2017-11-28 19:08 | PDOC PROGRESS REPORT ---
Subjective Progress Note for:: 11/28/17 Subjective:: pt is feeling weak and has severe left knee pain inhibiting her ambulation. NO SOB. NO n/v/ or dysuria. No chest pain today. . Reason For Visit: NON-ST ELEVATION (NSTEMI) MYOCARDIAL INFARCTION Physical Exam Vital Signs: Temp Pulse Resp BP Pulse Ox 98.3 F 56 L 16 128/49 H 99 11/28/17 15:49 11/28/17 15:49 11/28/17 15:49 11/28/17 15:49 11/28/17 15:49 Intake & Output 11/27/17 11/28/17 11/29/17 06:59 06:59 06:59 Intake Total 1197 1320 640 Output Total 700 2050 450 Balance 497 -730 190 Weight 97.4 kg 97.5 kg General appearance: PRESENT: cooperative, disheveled, mild distress Head exam: PRESENT: atraumatic, normocephalic Eye exam: PRESENT: EOMI. ABSENT: conjunctival injection, scleral icterus Mouth exam: PRESENT: moist Respiratory exam: PRESENT: clear to auscultation evita, unlabored. ABSENT: rales , rhonchi, wheezes Cardiovascular exam: PRESENT: RRR. ABSENT: systolic murmur GI/Abdominal exam: PRESENT: normal bowel sounds, soft. ABSENT: distended, tenderness Rectal exam: PRESENT: deferred Extremities exam: ABSENT: calf tenderness Neurological exam: PRESENT: alert, awake, oriented to person, oriented to place , oriented to situation, CN II-XII grossly intact Psychiatric exam: PRESENT: anxious Skin exam: PRESENT: dry, intact, warm Results Laboratory Results: 11/27/17 04:47 11/26/17 04:49 11/21/17 11/21/17 11/21/17 04:25 15:00 15:00 Creatine Kinase 83 CK-MB (CK-2) 1.33 Troponin I 0.063 0.037 Impressions: Hip X-Ray 11/20/17 00:00 IMPRESSION: NEGATIVE STUDY OF THE LEFT HIP AND PELVIS. NO RADIOGRAPHIC EVIDENCE OF ACUTE INJURY. Knee X-Ray 11/20/17 00:00 IMPRESSION: No acute fracture. Osteoarthritis. Chest X-Ray 11/21/17 00:00 IMPRESSION: CARDIAC ENLARGEMENT. VASCULAR CONGESTION. Abdomen/Pelvis CT 11/23/17 00:00 IMPRESSION: 1. COLONIC DIVERTICULOSIS. NO CT FINDINGS OF ACUTE DIVERTICULITIS. 2. ATROPHIC LEFT KIDNEY. 3. NO OTHER SIGNIFICANT OR ACUTE FINDINGS. Venous Doppler Study 11/25/17 10:58 IMPRESSION: NO EVIDENCE OF DVT OR SVT IN THE LEFT LEG. Assessment & Plan - Diagnosis (1) NSTEMI (non-ST elevated myocardial infarction) Is this a current diagnosis for this admission?: Yes Plan: Resolved. Patient will have a stress test as an outpatient. She is chest pain- free. She is on multiple cardiac medications and is being followed by our dictating machine transcriber. I did not make any medication changes today. (2) CAD (coronary artery disease) Qualifiers: Coronary Disease-Associated Artery/Lesion type: [place] artery [place] vs. transplanted heart: [place] heart Associated angina: angina presence unspecified Qualified Code(s): I25.10 - Atherosclerotic heart disease of [place] coronary artery without angina pectoris Is this a current diagnosis for this admission?: Yes Plan: See above. (3) Opiate dependence, continuous Is this a current diagnosis for this admission?: Yes Plan: She has chronic pain and is on oxycodone 20 mg p.o. every 8 hours and this will continue. (4) Knee pain, left Qualifiers: Chronicity: acute Qualified Code(s): M25.562 - Pain in left knee Is this a current diagnosis for this admission?: Yes Plan: By description patient could have a meniscal tear. I have ordered an MRI of the left knee. She also has as needed morphine available for severe pain. 1 mg IV every 6 hours as needed severe pain. - Time Time Spent with patient: 25-34 minutes - Inpatient Certification Based on my medical assessment, after consideration of the patient's comorbidities, presenting symptoms, or acuity I expect that the services needed warrant INPATIENT care.: Yes I certify that my determination is in accordance with my understanding of Medicare's requirements for reasonable and necessary INPATIENT services [42 CFR 412.3e].: Yes Medical Necessity: Need for Pain Control
[2017-11-28] MEDS: ONDANSETRON HCL INJ/PF 4 MG/2 ML SDV IV PRN (20:24)
[2017-11-28] MEDS ORDERED: NA PHOS,M-B/NA PHOS,DI-BA (ADULT) 133 ML ENEMA PR PRN (20:43)
[2017-11-28] MEDS ORDERED: BISACODYL 10 MG SUPP.RECT PR ONE (21:00)
[2017-11-28] MEDS: ATORVASTATIN CALCIUM 40 MG TABLET PO SCH (21:20)
[2017-11-28] MEDS: PHARMACY COMMUNICATION ORDER MC SCH (21:22)
[2017-11-29] MEDS: PENTOXIFYLLINE 400 MG TABLET.SA PO SCH ×2 (06:24→13:40)
[2017-11-29] MEDS: LEVOTHYROXINE SODIUM 0.1 MG TABLET PO SCH (06:24)
[2017-11-29] MEDS: LANSOPRAZOLE 30 MG TAB.RAP.DR PO SCH (06:24)
[2017-11-29] MEDS: RANOLAZINE 500 MG TAB.SR.12H PO SCH (06:24)
[2017-11-29] MEDS: HYDRALAZINE HCL 50 MG TABLET PO SCH ×2 (06:25→13:40)
[2017-11-29] MEDS: GABAPENTIN 300 MG CAPSULE PO SCH ×2 (06:25→13:40)
--- NOTE | 2017-11-29 10:42 | RADIOLOGY REPORT (SQ) ---
EXAM DESCRIPTION: MRI LT LOWER JOINT WITHOUT COMPLETED DATE/TIME: 11/28/2017 7:29 pm REASON FOR STUDY: severe left knee pain after "pop" sound, 2 days ag COMPARISON: 11/20/2017 radiographs TECHNIQUE: Leftknee images acquired and stored on PACS. Multiplanar images include fat sensitive se quences as T1, water sensitive sequences as FST2 or STIR, cartilage sensitive sequences as FSPD, and gradient echo sequences. LIMITATIONS: None. FINDINGS: JOINT AND BURSAE: Trace joint fluid. BONE CORTEX AND MARROW: No alteration of signal to suggest marrow replacement. No worrisome bone lesi ons. No occult fracture. ACL: Deficient. PCL: Intact. MCL: Intact. LCL: Intact. MEDIAL MENISCUS: Extensive root and posterior horn. Ballooning and hyperintensity in the extruded me niscus body. LATERAL MENISCUS: No gross tear. MEDIAL COMPARTMENT: Extensively denuded hyaline cartilage, full thickness loss with mild subchondral edema. LATERAL COMPARTMENT: Mild chondral thinning diffusely. No focal defects or bone edema. PATELLA: Normal location. Chondromalacia patella with areas of full thickness loss near the apex par ticularly. Mild underlying bone edema. Small osteophytes. EXTENSOR MECHANISM: Intact. Quadriceps and patella tendons normal. SOFT TISSUES: Adjacent muscles and subcutaneous tissues normal. Normal flow void in popliteal artery and vein. OTHER: No other significant finding. IMPRESSION: 1. Medial meniscus tear. 2. Age indeterminate ACL tear. Probably chronic given the la ck of significant joint effusion, but correlate with mechanism of injury. 3. Chondromalacia. This i s extensive throughout the medial compartment. There is also patellar cartilage loss. TECHNICAL DOCUMENTATION: JOB ID: [id number]- All Rights Reserved Reading location - IP/workstation name: [email or web address]
[2017-11-29] MEDS: POTASSIUM CHLORIDE 10 MEQ CAPSULE.ER PO SCH (11:00)
[2017-11-29] MEDS: METOPROLOL TARTRATE 25 MG TABLET PO SCH (11:00)
[2017-11-29] MEDS: LIDOCAINE 5% (700 MG) TRANSDERMAL ADH..PATCH TP SCH (11:00)
[2017-11-29] MEDS: POLYETHYLENE GLYCOL 3350 POWDER 17 GM/1 PACKET PO SCH (11:00)
[2017-11-29] MEDS: AMLODIPINE BESYLATE 10 MG TABLET PO SCH (11:00)
[2017-11-29] MEDS: ISOSORBIDE MONONITRATE 60 MG TAB.ER.24H PO SCH (11:00)
[2017-11-29] MEDS: ENOXAPARIN SODIUM INJ 40 MG/0.4 ML DISP.SYRIN SUBCUT SCH (11:00)
[2017-11-29] MEDS: ASPIRIN 81 MG TABLET, CHEWABLE PO SCH (11:00)
[2017-11-29] MEDS: LIOTHYRONINE SODIUM 5 MCG TABLET PO SCH (11:00)
[2017-11-29] MEDS: FUROSEMIDE 20 MG TABLET PO SCH (11:00)
[2017-11-29] MEDS: DOCUSATE SODIUM 100 MG CAPSULE PO SCH (11:00)
[2017-11-29] MEDS: TICAGRELOR 90 MG TABLET PO SCH (11:01)
[2017-11-29] MEDS ORDERED: MORPHINE SULFATE 10 MG/ML INJ IV PRN (11:03)
--- NOTE | 2017-11-29 12:06 | PDOC PROGRESS REPORT ---
Subjective Progress Note for:: 11/29/17 Subjective:: Patient noted to be reasonably well from cardiac standpoint. As noted above, nuclear stress images were uninterpretable. Patient does want to stay in a nuclear stress test done as I am told that she is not being discharged because of other medical reasons. Patient has been noted to have significant orthopedic issues. Pt is denying any chest arm or neck discomfort. Patient denying any PND, orthopnea. Patient denied any sustained palpitations, dizziness, syncope, near syncope. Patient denying any fever chills. Patient denying any other significant discomfort. Patient is maintaining sinus rhythm. Review of systems: Rest review of systems negative. Medications: Medications have been reviewed. Reason For Visit: NON-ST ELEVATION (NSTEMI) MYOCARDIAL INFARCTION Physical Exam Vital Signs: Temp Pulse Resp BP Pulse Ox 98.0 F 83 14 118/79 99 11/29/17 11:47 11/29/17 11:47 11/29/17 11:47 11/29/17 11:47 11/29/17 11:47 Intake & Output 11/28/17 11/29/17 11/30/17 06:59 06:59 06:59 Intake Total 1320 877 Output Total 2050 750 Balance -730 127 Weight 97.5 kg 96.9 kg Exam: GENERAL: well-nourished and in no acute distress. Alert and oriented x3 HEAD: Atraumatic, normocephalic. EYES: Pupils equal round and reactive to light, extraocular movements intact, sclera anicteric, conjunctiva are normal. ENT: TMs normal, nares patent, oropharynx clear without exudates. Moist mucous membranes. No oral ulcerations or bleeding gums noted NECK: supple without lymphadenopathy. Trachea is central. No cervical or axillary lymphadenopathy noted. Carotids are 2+, JVD WNL LUNGS: Respiration seems nonlabored, no significant accessory muscle action noted. Breath sounds clear to auscultation bilaterally and equal noted. No wheezes rales or rhonchi noted. No significant dullness noted on percussion. CHEST: Palpation of the chest wall shows no significant chest wall tenderness. HEART: [place] [employer], No PSH, 1/6 MATTIE aortic area, 1/6 osorio systolic murmur mitral area, no rubs, no gallops. ABDOMEN: Soft, no significant tenderness appreciated, normoactive bowel sounds. No guarding, no rebound. No rigidity noted . No masses appreciated. EXTREMITIES: Pedal pulses are 1-2+, no calf tenderness noted. No clubbing or cyanosis. 1+ pedal edema noted NEUROLOGICAL: Focused neurological exam showed no significant neurologic deficit. Normal speech, no focal weakness appreciated. PSYCH: Normal mood, normal affect. Judgment and insight within normal limits. SKIN: No significant ecchymosis, skin is noted to be warm. MUSCULOSKELETAL EXAM: No significant acute joint swelling noted. Results Laboratory Results: 11/27/17 04:47 11/21/17 11/21/17 11/21/17 04:25 15:00 15:00 Creatine Kinase 83 CK-MB (CK-2) 1.33 Troponin I 0.063 0.037 EKG Comments: Telemetry shows sinus rhythm without any sustained tachycardia or bradycardia Impressions: Hip X-Ray 11/20/17 00:00 IMPRESSION: NEGATIVE STUDY OF THE LEFT HIP AND PELVIS. NO RADIOGRAPHIC EVIDENCE OF ACUTE INJURY. Knee X-Ray 11/20/17 00:00 IMPRESSION: No acute fracture. Osteoarthritis. Chest X-Ray 11/21/17 00:00 IMPRESSION: CARDIAC ENLARGEMENT. VASCULAR CONGESTION. Abdomen/Pelvis CT 11/23/17 00:00 IMPRESSION: 1. COLONIC DIVERTICULOSIS. NO CT FINDINGS OF ACUTE DIVERTICULITIS. 2. ATROPHIC LEFT KIDNEY. 3. NO OTHER SIGNIFICANT OR ACUTE FINDINGS. Venous Doppler Study 11/25/17 10:58 IMPRESSION: NO EVIDENCE OF DVT OR SVT IN THE LEFT LEG. Lower Extremity MRI 11/28/17 00:00 IMPRESSION: 1. Medial meniscus tear. 2. Age indeterminate ACL tear. Probably chronic given the lack of significant joint effusion, but correlate with mechanism of injury. 3. Chondromalacia. This is extensive throughout the medial compartment. There is also patellar cartilage loss. Assessment & Plan - Diagnosis (1) NSTEMI (non-ST elevated myocardial infarction) Is this a current diagnosis for this admission?: Yes (2) CAD (coronary artery disease) Qualifiers: Coronary Disease-Associated Artery/Lesion type: [place] artery [place] vs. transplanted heart: [place] heart Associated angina: angina presence unspecified Qualified Code(s): I25.10 - Atherosclerotic heart disease of [place] coronary artery without angina pectoris Is this a current diagnosis for this admission?: Yes (3) CHF (congestive heart failure) Qualifiers: Heart failure type: unspecified Heart failure chronicity: chronic Qualified Code(s): I50.9 - Heart failure, unspecified Is this a current diagnosis for this admission?: Yes (4) CKD (chronic kidney disease) Qualifiers: Chronic kidney disease stage: stage 3 (moderate) Qualified Code(s): N18.3 - Chronic kidney disease, stage 3 (moderate) Is this a current diagnosis for this admission?: Yes (5) COPD (chronic obstructive pulmonary disease) Qualifiers: COPD type: unspecified COPD Qualified Code(s): J44.9 - Chronic obstructive pulmonary disease, unspecified Is this a current diagnosis for this admission?: Yes (6) GERD (gastroesophageal reflux disease) Qualifiers: Esophagitis presence: esophagitis presence not specified Qualified Code(s) : K21.9 - Gastro-esophageal reflux disease without esophagitis Is this a current diagnosis for this admission?: Yes (7) HLD (hyperlipidemia) Qualifiers: Hyperlipidemia type: unspecified Qualified Code(s): E78.5 - Hyperlipidemia , unspecified Is this a current diagnosis for this admission?: Yes (8) HTN (hypertension) Qualifiers: Hypertension type: essential hypertension Qualified Code(s): I10 - Essential (primary) hypertension Is this a current diagnosis for this admission?: Yes - Notes Notes: Patient not discharged because her not being able to ambulate due to significant orthopedic issues. If patient remains in the hospital, she did express to get the stress test done if at all feasible. However from cardiac standpoint, she has been stable and could be discharged. Patient's medical regimen reviewed. Patient already on Ranexa. Could increase it to 2000 mg per day if needed. Patient now no longer wishes to pursue a stress test as an inpatient. She tells me that she has an appointment set up with Dr. Watson from [facility], with the office in [place]. She does describe history of sleep apnea which she claims needs to be treated better and would like to follow-up with me for that condition. Feel that if patient does find on ambulation, she could be discharged on current regimen, with follow-up scheduled. Non-STEMI: Patient ruled in for non-STEMI by way of enzymes. Currently stable. Patient had nonspecific T-wave inversion. Feel that stress test can now be scheduled as an outpatient as patient has been stable from cardiac standpoint. This is preferred in view of significant renal dysfunction. In the meantime will optimize medical management. Will add Ranexa if patient not already on it. Coronary artery disease: Currently reasonably stable. Will try optimize underlying therapy for CAD. Recommend aspirin, Plavix, statins, beta blockers and good control of other risk factors. CHF: 2D echo performed earlier this admission was reviewed and is noted to show normal LVEF. 2D echo however was technically difficult.. Currently stable. CKD: Seems to be stage III by lab data. Monitor renal functions. COPD: Currently stable. Gastroesophageal reflux disease: Recommend proton pump inhibitor. Hyperlipidemia: Continue with high potency statin therapy. Hypertension: Recommend good control of blood pressure. Ideally blood pressure goal should be 135/85 or less in this lady but could be somewhat more difficult due to her advanced age. - Time Time with patient: Greater than 35 minutes Medications reviewed and adjusted accordingly: Yes
[2017-11-29 12:16] LABS: ANION GAP 10 (5-19); BLOOD UREA NITROGEN 17 mg/dL (7-20); CALCIUM 9.8 mg/dL (8.4-10.2); CARBON DIOXIDE 24 mmol/L (22-30); CHLORIDE 106 mmol/L (98-107); GLUCOSE 163 mg/dL (75-110); POTASSIUM 4.5 mmol/L (3.6-5.0)
[2017-11-29] MEDS: OXYCODONE HCL IR 5 MG TABLET PO PRN (13:42)
[2017-11-29 16:03] VITALS: BP 139/43
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
== END 2017-11-29 16:30 | disposition home or self-care (01) | DRG 281 ==
LOC: ER 14:57 → EH 11-19 12:13 → 3W 11-19 14:41
PROVIDERS: ADMIT Internal Medicine; ATTEND Internal Medicine
PROC: 3E0F73Z Introduction of Anti-inflammatory into Respiratory Tract, Via Natural or Artificial Opening (ICD-10-PCS; principal; 2017-11-19)
DX: I21.4 Non-ST elevation (NSTEMI) myocardial infarction (principal); F11.20 Opioid dependence, uncomplicated; I13.0 Hypertensive heart and chronic kidney disease with heart failure and stage 1 through stage 4 chronic kidney disease, or unspecified chronic kidney disease; I25.10 Atherosclerotic heart disease of native coronary artery without angina pectoris; I25.2 Old myocardial infarction; G89.29 Other chronic pain; I50.9 Heart failure, unspecified; J44.9 Chronic obstructive pulmonary disease, unspecified; E03.9 Hypothyroidism, unspecified; I73.9 Peripheral vascular disease, unspecified; E78.5 Hyperlipidemia, unspecified; N18.3 Chronic kidney disease, stage 3 (moderate); E66.9 Obesity, unspecified; M54.2 Cervicalgia; K21.9 Gastro-esophageal reflux disease without esophagitis; M19.90 Unspecified osteoarthritis, unspecified site; F17.210 Nicotine dependence, cigarettes, uncomplicated; Z66 Do not resuscitate; F41.9 Anxiety disorder, unspecified; K59.00 Constipation, unspecified; M25.562 Pain in left knee; Z68.36 Body mass index [BMI] 36.0-36.9, adult; Z95.1 Presence of aortocoronary bypass graft; R35.0 Frequency of micturition; G47.30 Sleep apnea, unspecified; S83.242A Other tear of medial meniscus, current injury, left knee, initial encounter; Y92.230 Patient room in hospital as the place of occurrence of the external cause; X50.0XXA Overexertion from strenuous movement or load, initial encounter; Z85.3 Personal history of malignant neoplasm of breast; Z79.82 Long term (current) use of aspirin; Z79.899 Other long term (current) drug therapy; Z88.6 Allergy status to analgesic agent; Z88.8 Allergy status to other drugs, medicaments and biological substances; Z65.5 Exposure to disaster, war and other hostilities
CPT/HCPCS: 36415; 71045; 74176; 74177; 80048; 80053; 80061; 81001; 82272; 82550; 82553; 83690; 83735; 84484; 85025; 85027; 93005; 93010; 93306; 93971; 96361; 96372; 96374; 99285; A9500; J1650; J2270; J2405; J2550; J3490; Q9969